=== PATIENT | male | born 1945 | race Caucasian/White ===

== ENCOUNTER → 2017-06-30 14:09 | Outpatient (CLI) | payer MEDICARE, SELFPAY ==
--- NOTE | 2017-06-30 14:18 | XR_ITS ---
XR chest 2V HISTORY: Productive cough ITS.REASON: CHRONIC COUGH ORDERING PHYSICIAN: Lakeshia Perez MD PATIENT AGE: 71 years COMPARISON: None 712 FINDINGS: The cardiomediastinal silhouette and pulmonary vascularity are within normal limits. The lungs are clear without infiltrates, suspicious nodules, or pleural effusions. Scattered calcified granulomas are present in the right lower lobe No acute bony abnormalities. IMPRESSION: No change with no acute finding
== END ==
PROVIDERS: PCP Family Medicine; Visit Provider Family Medicine
DX: R05 Cough (principal)
CPT/HCPCS: 71046

== ENCOUNTER → 2018-08-22 12:04 | Outpatient (CLI) | payer MEDICARE, SELFPAY ==
--- NOTE | 2018-08-22 12:06 | NM_ITS ---
SPECT MYOCARDIAL PERFUSION SCAN, REST AND STRESS: EXERCISE STRESS: [facility] REVIEW QGS EF AND WALL MOTION EVALUATION: QPS - PERFUSION EVALUATION: HISTORY: CAD PROCEDURE: Rest imaging performed after administration of10.23 millicuries Tc MIBI. Dose administered at12:00 p.m., with imaging thereafter. Stress imaging was then performed [id number] minutes 46 seconds of exercise stress. The patient achieved a heart [id number] with projected heart rate of127 . Resting BP166/89 with stress 162/70. At maximum exercise stress,31.2 millicuries Tc MIBI administered at1:50 p.m. with [id number] minutes thereafter. FINDINGS: Perfusion Evaluation: The single slice spect images as well as the [facility] bull's-eye data summary were reviewed. Wall Motion and Ejection Fraction Evaluation: Gated SPECT review and analysis used to evaluate these features. There is a 59 % left ventricular ejection fraction. There seems to be good wall motion Stress images reveal decreased activity in the portion of the mid anterior apical wall and mildly decreased activity in the inferior wall. Rest images reveal slightly worse activity in the inferior apical wall. Gated images calculated ejection fraction of 59% with normal wall motion IMPRESSION: Abnormal EKG response to exercise accompanied by evidence of reverse redistribution in the inferior apical wall. This is an abnormal stress test at least in the moderate range possibly in the high risk range based on the large amount of ischemic myocardium.
--- NOTE | 2018-08-22 14:36 | HMH.ITSHM ---
Current Home Medications as stated by this patient Alex Marquez or praneeth WATSON BI FLEX ASPIRIN Q-10 VIT D3 ATORVASTATIN LOSARTAN TIMOLOL BUPROPION AMLODIPINE
== END ==
PROVIDERS: PCP Family Medicine; Visit Provider Internal Medicine
DX: E78.5 Hyperlipidemia, unspecified (principal); I25.118 Atherosclerotic heart disease of native coronary artery with other forms of angina pectoris; I77.9 Disorder of arteries and arterioles, unspecified; J43.9 Emphysema, unspecified; R00.1 Bradycardia, unspecified; R00.2 Palpitations
CPT/HCPCS: 78452; 93017; A9502

== ENCOUNTER → 2018-08-24 14:30 | Outpatient (CLI) | payer MEDICARE, SELFPAY ==
--- NOTE | 2018-08-24 14:33 | CA_ITS ---
PROCEDURE: 2-D M-mode and color Doppler study INDICATIONS FOR THE TEST: Chest pain COPD+ Heart Murmur Tobacco SmokingEX Palpitations+ Fatigue Syncope Edema Hypertension+Diabetes Mellitus Rheumatic Fever SOB QUICK Obesity Hyperlipidemia+ Family History HD Additional History bradycardia PATIENT INFORMATION HEIGHT: 73 WEIGHT: 188 GENDER: Male B/P: 156/90 2-D/M-MODE INTERPRETATION: 2-D MEASUREMENTS OBSERVED VALUES IN CMS Right Ventricular Dimension (RVDd) 2.0 Interventricular Septum (Thickness)(IVsd) 0.9 Left Ventricular Internal Dimensions(LVIDd) 5.4 Left Ventricular Posterior Wall (Thickness)(LVPWd) 0.9 Aortic Root 1.9 Aortic Cusp Separation 2.0 Left Atrial Dimensions (LAD) 3.1 2D 1. Left atrium is mildly enlarged, left ventricle is normal size, mild concentric left ventricular hypertrophy, visually estimated ejection fraction 55% with no regional wall motion abnormality. 2. The right atrium and right ventricle are normal size and contractility. 3. The aortic valve is minimally thickened and fibrosed. 4. The mitral and tricuspid valve leaflets are minimally thickened. 5. The pulmonic valve is poorly present. 6. No significant pericardial effusion noted. DOPPLER INTERROGATION: Doppler interrogation of the aortic, mitral and tricuspid valvular presence of mild mitral and tricuspid regurgitation, tricuspid regurgitation jet velocity is inadequate for calculation of the right ventricular systolic pressure, grade 1 diastolic dysfunction seen without tissue Doppler evidence of raised left atrial pressure. CONCLUSION: 1. Mildly enlarged left atrium, normal left ventricular size, mild concentric left ventricular hypertrophy, visually estimated ejection fraction 55% with no regional wall motion abnormality, grade 1 diastolic dysfunction seen without tissue Doppler evidence of raised left atrial pressure. 2. Mild mitral and tricuspid regurgitation 3. No significant pericardial effusion noted.
--- NOTE | 2018-08-24 14:33 | CI_ITS ---
Cerebrovascular Exam Indications: Follow-up carotid 433.10. IMPRESSIONS 1. The bilateral vertebral arteries are patent with normal antegrade flow. 2. Study suggests 20-49% stenosis involving the right internal carotid artery. Disease progression from the study of 13-Apr-2016. 3. Study suggests 20-49% stenosis involving the left internal carotid artery. No change from the study of 13-Apr-2016. History: Risk factors: Hypertension. Carotid duplex study. Complete study and Doppler flow study including spectral analysis, color and ngo scale imaging. Location: Vascular laboratory. Patient status: Outpatient. Tables: Arterial flow: + +--------+--------+ Location V sys V ed + +--------+--------+ Right CCA - proximal 125cm/s 29.9cm/s + +--------+--------+ Right CCA - distal 127cm/s 30.6cm/s + +--------+--------+ Right ECA 86.9cm/s 17.5cm/s + +--------+--------+ Right ICA - proximal 111cm/s 28.3cm/s + +--------+--------+ Right ICA - mid 99.1cm/s 34cm/s + +--------+--------+ Right ICA - distal 107cm/s 33cm/s + +--------+--------+ Right vertebral 57.3cm/s 13.6cm/s + +--------+--------+ Left CCA - proximal 94.9cm/s 21.5cm/s + +--------+--------+ Left CCA - distal 107cm/s 25.9cm/s + +--------+--------+ Left ECA 99cm/s 13.7cm/s + +--------+--------+ Left ICA - proximal 51.3cm/s 18cm/s + +--------+--------+ Left ICA - mid 67.6cm/s 21.8cm/s + +--------+--------+ Left ICA - distal 63.5cm/s 25.1cm/s + +--------+--------+ Left vertebral 79.6cm/s 19cm/s + +--------+--------+ Velocity ratios: + + + + + + Right, V sys Right, V ed Left, V sys Left, V ed + + + + + + Max ICA/dist CCA 0.87 1.11 0.63 0.97 + + + + + + (Report amended ) Electronically signed by: Zachariah Rankin [id number]
== END ==
PROVIDERS: PCP Family Medicine; Visit Provider Internal Medicine
DX: R09.89 Other specified symptoms and signs involving the circulatory and respiratory systems; E78.5 Hyperlipidemia, unspecified; I25.118 Atherosclerotic heart disease of native coronary artery with other forms of angina pectoris; I77.9 Disorder of arteries and arterioles, unspecified; J43.9 Emphysema, unspecified; R00.1 Bradycardia, unspecified; R00.2 Palpitations; I65.23 Occlusion and stenosis of bilateral carotid arteries
CPT/HCPCS: 93306; 93880

== ENCOUNTER → 2018-08-29 14:28 | Outpatient (CLI) | payer MEDICARE, SELFPAY | PROVIDERS: PCP Family Medicine; Visit Provider Urology | DX: E78.5 Hyperlipidemia, unspecified (principal); I25.10 Atherosclerotic heart disease of native coronary artery without angina pectoris; I77.9 Disorder of arteries and arterioles, unspecified; R00.1 Bradycardia, unspecified; R94.30 Abnormal result of cardiovascular function study, unspecified | CPT/HCPCS: 93270 ==

== ENCOUNTER 2018-09-03 08:18 | Day surgery (SDC) | payer MEDICARE, SELFPAY ==
[2018-09-03] VITALS (13 sets, daily range): BP systolic 103–179; BP diastolic 50–99; PULSE 56–65; RESP 16–18; O2SAT 95–99; BMI 24.7
--- NOTE | 2018-09-03 | IR_ITS ---
CARDIAC CATHETERIZATION DATE OF CATHETERIZATION:09/03/2018 9:33 AM PROCEDURES: 1. Left heart catheterization 2. Left ventriculogram 3. Selective coronary angiogram INDICATION FOR TEST: 1. High risk abnormal stress test 2. Atypical chest pain Informed consent was obtained prior to the procedure. COMPLICATIONS: None ESTIMATED BLOOD LOSS: Less than 10 ml. TECHNIQUE: One percent lidocaine used to anesthetize the right anterior aspect of the wrist. The right radial artery was accessed via the Seldinger technique. A 6 Macanese sheath was placed in the right radial artery. 2.5 mg of verapamil, 800 mcg of nitroglycerin, 1mg Lidocaine and 5000 U Heparin were given through the arterial sheath. The trap catheter and a 6 Macanese JL 3.5 catheter was also used to perform left heart catheterization, left ventriculogram and selective coronary angiogram. At the end of the procedure the sheath was removed good hemostasis was achieved using Traclet band, patient was transferred to the postop holding area in stable condition . ANGIOGRAPHIC RESULTS: 1. The left main artery normal 2. The left anterior descending artery has proximal 10% luminal irregularities within mid vessel concentric 20-30% stenosis. This is a large vessel which wraps the apex and supplies the inferior wall 3. The circumflex artery is a dominant system and gives rise to a high ramus intermedius which is moderate in size and has a long concentric smooth 50% stenosis. The high first obtuse marginal artery has a proximal 70-80% stenosis and is a 2.25 mm vessel. The circumflex artery has 30% mid vessel stenoses followed by a 70% concentric stenosis distal terminal obtuse marginal artery at a 1.5 mm segment. This supplies a small amount of distal myocardium 4. The right coronary artery small nondominant normal 5. The ADRIAN ventriculogram reveals normal 65% 6. The left ventricular end-diastolic pressure 10 mmHg IMPRESSION: 1. Coronary artery disease as described above 2. Normal ejection fraction 3. Normal left ventricular end-diastolic pressure PLAN: 1. Recommend aggressive medical management. Although the first obtuse marginal artery could be stented it would benefit better from medical management and my opinion. Should patient have recalcitrant angina refractory to antianginal medications we can consider stenting it but my preference is medical management 2. Avoidance of tobacco products 3. LDL less than 55
[2018-09-03 09:04] LABS: Basophils # 0.1 K/mm3 (0-0.2); Basophils % 0.9 % (0.1-2.0); Eosinophils # 0.3 K/mm3 (0.0-0.4); Eosinophils % 4.3 % (0.1-12.0); Hematocrit 42.5 % (42.0-52.0); Hemoglobin 13.9 g/dL (14.1-18.0); Lymphocytes # 1.8 K/mm3 (0.7-4.5); Lymphocytes % 26.3 % (10-50); Mean Corpuscular HGB Conc 32.7 g/dL (31.8-35.4); Mean Corpuscular Hemoglobin 31.2 pg (27.0-31.2); Mean Corpuscular Volume 95.3 fl (80-94); Mean Platelet Volume 7.2 fl (7.4-10.4); Monocytes # 0.5 K/mm3 (0.1-1.0); Monocytes % 7.5 % (1.7-9.3); Neutrophils # 4.3 K/mm3 (1.8-7.8); Platelet Count 240 K/mm3 (142-424); Red Blood Count 4.46 M/mm3 (4.60-6.20); Red Cell Distribution Width 12.7 % (11.5-17.5)
[2018-09-03 09:11] LABS: Anion Gap 13.8 mEq/L (5-15); Blood Urea Nitrogen 18 mg/dL (7-18); Calcium 8.6 mg/dL (8.5-10.1); Carbon Dioxide 26 mmol/L (21.0-32.0); Chloride 100 mmol/L (98-107); Creatinine Clearance Estimated 78 mL/min (50-200); Creatinine,Serum 1.05 mg/dL (0.70-1.30); Estimated Glomerular Filt Rate 70 ml/min (>60); GFR (African American) 84 ML/MIN (>60); Glucose 110 mg/dL (74-106); Sodium 135 mmol/L (136-145)
[2018-09-03 09:14] LABS: Potassium 4.8 mmoL/L (3.5-5.1)
== END 2018-09-03 13:18 | disposition home or self-care (01) ==
LOC: CATHLAB 08:19
PROVIDERS: PCP Family Medicine; Visit Provider Internal Medicine
DX: I25.10 Atherosclerotic heart disease of native coronary artery without angina pectoris (principal); Z95.5 Presence of coronary angioplasty implant and graft; I50.30 Unspecified diastolic (congestive) heart failure; I65.29 Occlusion and stenosis of unspecified carotid artery; I77.9 Disorder of arteries and arterioles, unspecified; E78.5 Hyperlipidemia, unspecified; Z79.899 Other long term (current) drug therapy
CPT/HCPCS: 80048; 85025; 93458; 99152; C1725; C1769; J1644; Q9967

== ENCOUNTER → 2018-09-24 10:41 | Outpatient (CLI) | payer MEDICARE, SELFPAY ==
[2018-09-24 11:46] LABS: Anion Gap 10.5 mEq/L (5-15); Blood Urea Nitrogen 12 mg/dL (7-18); Calcium 8.4 mg/dL (8.5-10.1); Carbon Dioxide 31 mmol/L (21.0-32.0); Chloride 96 mmol/L (98-107); Creatinine,Serum 1.09 mg/dL (0.70-1.30); Estimated Glomerular Filt Rate 67 ml/min (>60); GFR (African American) 81 ML/MIN (>60); Glucose 83 mg/dL (74-106); Potassium 4.5 mmoL/L (3.5-5.1); Sodium 133 mmol/L (136-145)
== END ==
PROVIDERS: Visit Provider Internal Medicine Cardiovascular Disease
DX: E78.5 Hyperlipidemia, unspecified (principal); I11.9 Hypertensive heart disease without heart failure; I25.10 Atherosclerotic heart disease of native coronary artery without angina pectoris; I77.9 Disorder of arteries and arterioles, unspecified
CPT/HCPCS: 36415; 80048

== ENCOUNTER → 2019-04-19 10:37 | Outpatient (CLI) | payer MEDICARE, SELFPAY ==
--- NOTE | 2019-04-19 10:42 | XR_ITS ---
PROCEDURE: XR FOOT WT BEARING LT 3V CLINICAL INDICATION: pain COMPARISON: No exams were available for comparison FINDINGS: No fracture or dislocation. No lytic or blastic change. There is normal mineralization. There are severe osteoarthritic changes of the 1st metatarsophalangeal joint with moderate bony hypertrophy/bunion formation. There is mild pes planus. 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
--- NOTE | 2019-04-19 10:42 | XR_ITS ---
PROCEDURE: XR FOOT WT BEARING RT 3V CLINICAL INDICATION: pain COMPARISON: No exams were available for comparison FINDINGS: No fracture or dislocation. No lytic or blastic change. There is normal mineralization. There are severe osteoarthritic changes of the 1st metatarsophalangeal joint with mild hallux valgus. There is mild lateral displacement of the proximal phalanx of the great toe of approximately 3 mm. There bunion formation at that region with prominent bony hypertrophy. There is borderline pes planus and there is a small calcaneal spur. Other findings:None. IMPRESSION: There are severe osteoarthritic changes of the 1st metatarsophalangeal joint with mild hallux valgus. There is mild lateral displacement of the proximal phalanx of the great toe of approximately 3 mm. There bunion formation at that region with prominent bony hypertrophy. There is borderline pes planus and there is a small calcaneal spur Dictated by: Zachariah Rankin MD 04/19/2019 15:54 Electronically signed by Zacharaih Rankin MD in [place] 04/19/2019 15:54
== END ==
PROVIDERS: PCP Family Medicine; Visit Provider Podiatrist
DX: M79.672 Pain in left foot (principal); M79.671 Pain in right foot
CPT/HCPCS: 73630

== ENCOUNTER 2019-09-10 16:50 | Emergency (ER) | payer MEDICARE, SELFPAY ==
[2019-09-10 16:57] VITALS: BP 149/87; PULSE 63; RESP 18; TEMP 37.3; O2SAT 98; BMI 24.4
--- NOTE | 2019-09-10 16:59 | HMH.COUGH ---
Cough Clinic HPI - History of Present Illness Complaint:: cough HPI:: 74 year old male presents to the cough clinic with a cough since awakening this a.m. with associated nasal congestion and post nasal drainage. He has been very active outside mowing grass and tending to his yard. He admits he felt clammy yesterday but had a normal temperature. He denies shortness of breath. He quit smoking 40 years ago. He has had pneumonia twice in his adult life. He admits he also comes to the cough clinic because his encouraged him too. Home Medications: Home Medications Medication Instructions Recorded Confirmed Type aspirin 81 mg tablet,delayed 81 mg PO DAILY 08/10/18 09/10/19 History release atorvastatin 40 mg tablet 40 mg PO DAILY 08/10/18 09/10/19 History coenzyme Q10 100 mg capsule 100 mg PO DAILY 08/10/18 09/10/19 History ibuprofen 600 mg tablet 600 mg PO QID PRN 08/10/18 09/10/19 History timolol maleate (PF) 0.5 % eye 1 drp OPHTHALMIC BID 08/10/18 09/10/19 History drops in a dropperette bupropion HCl 150 mg 24 hr tablet, 150 mg PO DAILY 08/13/18 09/10/19 History extended release cholecalciferol (vitamin D3) 25 1,000 unit PO DAILY 08/13/18 09/10/19 History mcg (1,000 unit) capsule glucosamine [id number] 1 tab PO DAILY 08/13/18 09/10/19 History jak 1,500 mg-400 unit-100 mg tablet oxazepam 15 mg capsule 15 mg PO TID PRN cap 08/13/18 09/10/19 History glucosamine-chondroitin 250 mg-200 2 tab PO BID tab 09/14/18 09/10/19 History mg tablet diclofenac sodium 1 % topical gel 4 g TOPICAL QID PRN #30 g 06/17/19 09/10/19 Rx Losartan/Hydrochlorothiazide 1 tab PO DAILY 09/10/19 09/10/19 History [Hyzaar 50-12.5 Tablet] Allergies/Adverse Reactions: Allergies Allergy/AdvReac Type Severity Reaction Status Date / Time No Known Drug Allergies Allergy Unknown Verified 09/10/19 16:53 [NKDA] Cough Clinic Triage - Symptoms Fever History: No Chills: No Myalgia: No Nasal Drainage: Yes Sore Throat: No (dry) Productive Cough: No Non-productive Cough: Yes Ear or Sinus Pain: No Joint Pain: No Chest Pain: No Rash: No Shortness of Breath: No Nausea or Vomitting: No Headache: No Abdominal Pain: No Diarrhea: No - Exposure History Foreign Travel: No Direct Contact with COVID-19 Patient: No - Risk Factors Greater than 60 Years Old: Yes COPD: No Diabetes: No Heart Disease: Yes (htn, stents) Home Oxygen Use: No Chronic Renal Disease: No Chronic Liver Disease: No Neurologic/Neurodevelopmental/intellectual disability: No Other Chronic Diseases: No Current Smoker: No Former Smoker: Yes Cough Clinic History I have reviewed the patient's past medical history: Yes Medical History: Reports:: Anxiety, Coronary Artery Disease, Heart Murmur, Hyperlipidemia, Hypertension Other Surgeries: Yes: Cardiac Catheterization, Coronary Stent, Hernia Repair, Other Comment: Back surgery - Social History Smoking Status: Former smoker Alcohol Intake: never Alcohol Intake Frequency:: a few times a week Substance Use Type: denies use Occupational Status: retired Household Members: spouse - Psychiatric History Pschychiatric History:: Reports:: Anxiety Family Hx:: Adopted ROS Obtained: Yes All systems reviewed & no additional complaints Cough Clinic Exam - General General appearance: anxious - Head Head exam: atraumatic, normocephalic, normal inspection - Eye Eye exam: Present: normal appearance. Absent: conjunctival redness - ENT ENT exam: Present: normal oropharynx - Neck Neck exam: Present: normal inspection. Absent: lymphadenopathy - Chest Chest inspection: Present: normal inspection, symmetric chest wall rise - Respiratory Respiratory exam: Present: normal lung sounds bilaterally. Absent: respiratory distress, wheezes - Cardiovascular Cardiovascular exam: Present: regular rate, +S1, +S2 - Abdominal Exam Abdominal exam: Present: soft - Neurological Exam Neurological
--- NOTE | 2019-09-10 17:04 | XR_ITS ---
PROCEDURE: XR CHEST PORTABLE CLINICAL HISTORY: cough/respiratory symptoms COMPARISON: CXR2V XR chest 2V from 06/30/2017 FINDINGS: The cardiomediastinal silhouette and pulmonary vascularity are within normal limits. The lungs are clear without infiltrates, suspicious nodules, or pleural effusions. Calcified granulomas are present in the right mid lower lung zone. The remaining lungs are clear. No acute bony findings. IMPRESSION: No acute findings. Dictated by: Zachariah Rankin MD 09/10/2019 18:19 Electronically signed by Zachariah Rankin MD in [place] 09/10/2019 18:19
[2019-09-10 17:16] LABS: Mean Corpuscular HGB Conc 31.8 g/dL (31.8-35.4); Mean Corpuscular Hemoglobin 31.4 pg (27.0-31.2); Mean Corpuscular Volume 98.6 fl (80-94); Red Blood Count 4.15 M/mm3 (4.60-6.20); White Blood Count 9.4 K/mm3 (4.8-10.8)
[2019-09-10 17:17] LABS: Basophils # 0.1 K/mm3 (0-0.2); Basophils % 0.9 % (0.1-2.0); Eosinophils # 0.3 K/mm3 (0.0-0.4); Eosinophils % 3.1 % (0.1-12.0); Lymphocytes # 2.6 K/mm3 (0.7-4.5); Lymphocytes % 27.6 % (10-50); Mean Platelet Volume 7.3 fl (7.4-10.4); Monocytes # 0.8 K/mm3 (0.1-1.0); Monocytes % 8.2 % (1.7-9.3); Neutrophils # 5.7 K/mm3 (1.8-7.8); Neutrophils % 60.2 % (37.0-80.0); Platelet Count 257 K/mm3 (142-424)
[2019-09-10 17:24] VITALS: BP 142/78; PULSE 61; RESP 18; TEMP 37.3; O2SAT 98
== END 2019-09-10 17:33 | disposition home or self-care (01) ==
PROVIDERS: Emergency Provider Family Medicine; PCP Family Medicine
DX: R05 Cough (principal); R09.81 Nasal congestion; F41.9 Anxiety disorder, unspecified; I25.10 Atherosclerotic heart disease of native coronary artery without angina pectoris; E78.5 Hyperlipidemia, unspecified; I10 Essential (primary) hypertension; Z87.891 Personal history of nicotine dependence
CPT/HCPCS: G0463; 36415; 71045; 85025; 99201; 99213

== ENCOUNTER → 2019-12-12 11:31 | Outpatient (CLI) | payer MEDICARE, SELFPAY ==
[2019-12-12 12:13] LABS: Basophils # 0.1 K/mm3 (0-0.2); Basophils % 0.4 % (0.1-2.0); Eosinophils # 0.1 K/mm3 (0.0-0.4); Eosinophils % 1.1 % (0.1-12.0); Hematocrit 41.9 % (42.0-52.0); Lymphocytes % 9.3 % (10-50); Mean Corpuscular HGB Conc 33.4 g/dL (31.8-35.4); Mean Corpuscular Hemoglobin 32.9 pg (27.0-31.2); Mean Corpuscular Volume 98.5 fl (80-94); Mean Platelet Volume 7.1 fl (7.4-10.4); Monocytes # 0.7 K/mm3 (0.1-1.0); Monocytes % 6.5 % (1.7-9.3); Neutrophils % 82.7 % (37.0-80.0); Platelet Count 224 K/mm3 (142-424); Red Blood Count 4.26 M/mm3 (4.60-6.20); Red Cell Distribution Width 12.8 % (11.5-17.5); White Blood Count 10.9 K/mm3 (4.8-10.8)
[2019-12-14 09:02] LABS: Covid-19 Nasal PCR Sendout Lex NOT DETECTED
== END ==
PROVIDERS: PCP Family Medicine; Referring Provider Family Medicine; Visit Provider Family Medicine
DX: Z03.818 Encounter for observation for suspected exposure to other biological agents ruled out (principal)
CPT/HCPCS: 36415; 85025; U0004

== ENCOUNTER → 2020-03-25 11:33 | Outpatient (CLI) | payer MEDICARE, SELFPAY ==
[2020-03-25 13:36] LABS: Alanine Aminotransferase 33 U/L (12-78); Albumin Level 4.2 g/dl (3.5-5.0); Albumin/Globulin Ratio 1.6 (1.1-1.8); Alkaline Phosphatase 113 U/L (38-126); Anion Gap 10.8 mEq/L (5-15); Aspartate Amino Transferase 36 U/L (17-59); Bilirubin,Total 0.5 mg/dl (0.2-1.3); Blood Urea Nitrogen 18 mg/dl (9-20); Calcium 9.7 mg/dl (8.4-10.2); Carbon Dioxide 31 mmol/L (22.0-30.0); Chloride 96 mmol/L (98-107); Estimated Glomerular Filt Rate 73 ml/min (>60); GFR (African American) 89 ML/MIN (>60); Globulin 2.6 g/dL (1.3-3.2); Glucose 102 mg/dl (74-100); Potassium 4.8 mmoL/L (3.5-5.1); Sodium 133 mmol/L (136-145); Total Protein,Serum 6.8 g/dl (6.3-8.2)
[2020-03-25 14:43] LABS: Vitamin B12 376 pg/mL (239-931)
[2020-03-25 14:47] LABS: Folate 7.96 ng/mL
== END ==
PROVIDERS: Visit Provider Family Medicine
DX: I25.10 Atherosclerotic heart disease of native coronary artery without angina pectoris (principal); E78.5 Hyperlipidemia, unspecified
CPT/HCPCS: 36415; 80053; 82607; 82746

== ENCOUNTER → 2020-05-22 16:11 | Outpatient (CLI) | payer MEDICARE, SELFPAY | PROVIDERS: PCP Physician Assistant; Visit Provider Physician Assistant | DX: Z11.52 Encounter for screening for COVID-19 (principal) | CPT/HCPCS: U0003 ==

== ENCOUNTER → 2020-12-25 14:18 | Outpatient (CLI) | payer MEDICARE, SELFPAY ==
[2020-12-25 14:58] LABS: Basophils # 0.1 K/mm3 (0-0.2); Basophils % 0.8 % (0.1-2.0); Eosinophils # 0.3 K/mm3 (0.0-0.4); Hematocrit 40.2 % (42.0-52.0); Hemoglobin 13.6 g/dL (14.1-18.0); Lymphocytes # 2.5 K/mm3 (0.7-4.5); Lymphocytes % 27.3 % (10-50); Mean Corpuscular HGB Conc 33.7 g/dL (31.8-35.4); Mean Corpuscular Hemoglobin 31.9 pg (27.0-31.2); Mean Corpuscular Volume 94.4 fl (80-94); Mean Platelet Volume 7.1 fl (7.4-10.4); Monocytes # 0.7 K/mm3 (0.1-1.0); Neutrophils # 5.5 K/mm3 (1.8-7.8); Neutrophils % 60.9 % (37.0-80.0); Platelet Count 242 K/mm3 (142-424); Red Blood Count 4.26 M/mm3 (4.60-6.20); Red Cell Distribution Width 13.1 % (11.5-17.5)
== END ==
PROVIDERS: PCP Family Medicine; Visit Provider Family Medicine
DX: Z20.822 Contact with and (suspected) exposure to COVID-19 (principal)
CPT/HCPCS: 36415; 85025; U0003

== ENCOUNTER → 2021-02-04 18:27 | Outpatient (CLI) | payer MEDICARE, SELFPAY ==
[2021-02-04 19:04] LABS: Erythrocyte Sedimentation Rate 15 mm/hr (0-20)
== END ==
PROVIDERS: Visit Provider Family Medicine
DX: R41.3 Other amnesia (principal)
CPT/HCPCS: 85651

== ENCOUNTER 2021-06-17 11:32 | Emergency (ER) | payer MEDICARE, SELFPAY ==
--- NOTE | 2021-06-17 12:40 | XR_ITS ---
FINAL REPORT CLINICAL HISTORY: cough, covid, cad COMPARISON: 09/10/2019 FINDINGS: TWO VIEWS OF THE CHEST The heart is normal in size. The mediastinum is unremarkable. The lungs are hyperinflated consistent with COPD. There is mild scarring, stable. No new pulmonary abnormality is identified. There is no pneumothorax. IMPRESSION: No acute cardiopulmonary process. Reviewed, Interpreted and Dictated by Esequiel Velasquez III, MD Transcribed by Analy Luz Authenticated by Esequiel Velasquez III, MD on 06/17/2021 01:22:05 PM [facility]
--- NOTE | 2021-06-17 13:30 | HMH.EDUTC ---
[facility] [place] Disposition Clinical Impression: COVID-19 Disposition: Home, Self-Care Condition on Discharge: Good Instructions: DI for COVID-19 (Suspected or Confirmed ), Preventing the Spread of Coronavirus Discharge Instructions Additional Instructions: Drink plenty of fluids. Take tylenolfor pain or fever. Take the medications as directed. Follow up with your regular doctor. GO TO THE ER FOR ANY WORSENING SYMPTOMS The cough syrup (promethazine dm) will make you drowsy, so don't drive or operate heavy machinery after taking it. Be very careful and do not fall at home if you take it. Prescriptions: Promethazine/Dextromethorphan [Promethazine-Dm Syrup] 5 ml PO Q6HP PRN #240 ml PRN Reason: Cough Transmission Status: Received by [facility] Ondansetron [Zofran 4mg ODT] 4 mg PO Q8HP PRN #20 tab PRN Reason: Nausea Transmission Status: Received by [facility] Benzonatate [Benzonatate 100mg cap] 100 mg PO TIDP PRN #30 cap PRN Reason: Cough Transmission Status: Received by [facility] Referrals: Lakeshia Perez MD [Primary Care Provider] - Time of Disposition: 13:36 Medical Decision Making - Medical Records Medical records reviewed: No: I reviewed the patient's medical records. - Carlos Inquiry Pt receiving controlled substance: No Vital Signs: 06/17/21 13:43 06/17/21 13:47 Temperature 97.6 F 97.6 F Temperature Source Temporal Artery Scan Pulse Rate 61 Pulse Rate [Left] 61 Respiratory Rate 18 18 Blood Pressure 157/70 H Blood Pressure [Right Arm] 157/70 H Blood Pressure Mean [Right Arm] 99 02 Sat by Pulse Oximetry 98 - Radiology Data #1 Image(s): Chest Image Reviewed: Yes I reviewed the patient's radiology image, Yes I have reviewed radiologist's interpretation Preliminary Findings: Normal/NAD, No Infiltrates Seen FINAL REPORT CLINICAL HISTORY: cough, covid, cad COMPARISON: 09/10/2019 FINDINGS: TWO VIEWS OF THE CHEST The heart is normal in size. The mediastinum is unremarkable. The lungs are hyperinflated consistent with COPD. There is mild scarring, stable. No new pulmonary abnormality is identified. There is no pneumothorax. IMPRESSION: No acute cardiopulmonary process. Reviewed, Interpreted and Dictated by Esequiel Velasquez III, MD Transcribed by Analy Luz Authenticated by Esequiel Velasquez III, MD on 06/17/2021 01:22:05 PM [facility] HPI - General Stated complaint: covid pos, cough/congestion Time Seen by Provider: 06/17/21 13:45 - History of Present Illness Provider Complaint: He tested positive for covid-19 5 days ago. He came in today to be checked for pneumonia. He denies significant shortness of breath. He does have a low grade fever at times and a productive cough with yellowish sputum. He denies feeling very bad. - Related Data Home Medications Medication Instructions Recorded Confirmed aspirin 81 mg tablet,delayed 81 mg PO DAILY 08/10/18 10/16/20 release atorvastatin 40 mg tablet 40 mg PO DAILY 08/10/18 10/16/20 coenzyme Q10 100 mg capsule 100 mg PO DAILY 08/10/18 10/16/20 ibuprofen 600 mg tablet 600 mg PO QID PRN 08/10/18 10/16/20 timolol maleate (PF) 0.5 % eye 1 drp OPHTHALMIC BID 08/10/18 10/16/20 drops in a dropperette bupropion HCl 150 mg 24 hr tablet, 150 mg PO DAILY 08/13/18 10/16/20 extended release cholecalciferol (vitamin D3) 25 1,000 unit PO DAILY 08/13/18 10/16/20 mcg (1,000 unit) capsule glucosamine [id number]-Cafdzpiif 1 tab PO DAILY 08/13/18 10/16/20 jak 1,500 mg-400 unit-100 mg tablet oxazepam 15 mg capsule 15 mg PO TID PRN cap 08/13/18 10/16/20 Previous Rx's Medication Instructions Recorded diclofenac sodium 1 % topical gel 4 g TOPICAL QID PRN #30 g 12/16/19 losartan 50 mg tablet 50 mg PO QHS #90 tab 03/15/21 losartan 50 mg-hydrochlorothiazide 1 tab PO DAILY #90 tab 03/15/21 12.5 mg tablet Benzonatate [Be
[2021-06-17 13:43] VITALS: BP 157/70; PULSE 61; RESP 18; TEMP 36.4; O2SAT 98; BMI 24.4
[2021-06-17 13:47] VITALS: BP 157/70; PULSE 61; RESP 18; TEMP 36.4
== END 2021-06-17 13:48 | disposition home or self-care (01) ==
PROVIDERS: Emergency Provider Nurse Practitioner Family; PCP Family Medicine
DX: U07.1 COVID-19 (principal); F41.9 Anxiety disorder, unspecified; I25.10 Atherosclerotic heart disease of native coronary artery without angina pectoris; E78.5 Hyperlipidemia, unspecified; I10 Essential (primary) hypertension; F17.210 Nicotine dependence, cigarettes, uncomplicated
CPT/HCPCS: G0463; 71046; 99202

== ENCOUNTER → 2022-03-23 09:58 | Outpatient (CLI) | payer MEDICARE, SELFPAY ==
[2022-03-23 10:19] LABS: Microscopic, Urine URINE MICROSCOPIC (MICROSCOPIC)
[2022-03-23 10:42] LABS: Basophils # 0.1 K/mm3 (0-0.2); Basophils % 0.8 % (0.1-2.0); Eosinophils # 0.2 K/mm3 (0.0-0.4); Eosinophils % 1.7 % (0.1-12.0); Hematocrit 42.3 % (42.0-52.0); Hemoglobin 13.2 g/dL (14.1-18.0); Lymphocytes # 1.5 K/mm3 (0.7-4.5); Lymphocytes % 14.6 % (10-50); Mean Corpuscular HGB Conc 31.1 g/dL (31.8-35.4); Mean Corpuscular Hemoglobin 31.5 pg (27.0-31.2); Mean Corpuscular Volume 101.2 fl (80-94); Mean Platelet Volume 7.6 fl (7.4-10.4); Monocytes # 0.7 K/mm3 (0.1-1.0); Monocytes % 6.2 % (1.7-9.3); Neutrophils # 8.1 K/mm3 (1.8-7.8); Neutrophils % 76.7 % (37.0-80.0); Platelet Count 297 K/mm3 (142-424); Red Blood Count 4.18 M/mm3 (4.60-6.20); Red Cell Distribution Width 12.6 % (11.5-17.5); White Blood Count 10.6 K/mm3 (4.8-10.8)
[2022-03-23 11:05] LABS: Appearance,Urine CLEAR (Clear); Bilirubin,Urine Negative (Negative); Blood, Urine Negative (Negative); Color,Urine YELLOW (Yellow); Glucose,Urine (UA) 3+ (Negative); Ketones,Urine Negative (Negative); Leukocyte Esterase,Urine Negative (Negative); Nitrate,Urine Negative (Negative); Protein,Urine Negative (Negative); Specific Gravity, Urine 1.015 (1.005-1.030); Urobilinogen,Urine 0.2 EU/dl (0.2)
[2022-03-23 11:15] LABS: Creatinine,Urine Random 136 mg/dL (Not Estab.)
[2022-03-23 11:29] LABS: WBC,Urine Occasional #/hpf (0-3)
[2022-03-23 11:34] LABS: 25-OH Vitamin D, Total 61.1 ng/mL (30-100)
[2022-03-23 12:25] LABS: Albumin Level 4.2 g/dl (3.5-5.0); Anion Gap 15.7 mEq/L (5-15); Blood Urea Nitrogen 22 mg/dl (9-20); Calcium 9.3 mg/dl (8.4-10.2); Carbon Dioxide 27 mmol/L (22.0-30.0); Chloride 97 mmol/L (98-107); Estimated Glomerular Filt Rate 46 ml/min (>60); GFR (African American) 55 ML/MIN (>60); Glucose 104 mg/dl (74-100); Phosphorous 3.8 mg/dl (2.5-4.5); Potassium 4.7 mmoL/L (3.5-5.1); Sodium 135 mmol/L (136-145)
[2022-03-23 12:33] LABS: Intact Parathyroid Hormone 41.2 pg/mL (7.5-53.5)
== END ==
PROVIDERS: PCP Family Medicine; Visit Provider Internal Medicine Nephrology
DX: N28.9 Disorder of kidney and ureter, unspecified (principal); E55.9 Vitamin D deficiency, unspecified
CPT/HCPCS: 36415; 80069; 81001; 82306; 82570; 83970; 84155; 85025

== ENCOUNTER → 2022-03-28 15:02 | Outpatient (POV) | payer MEDICARE, SELFPAY | PROVIDERS: Visit Provider Internal Medicine Nephrology | DX: Z00.00 Encounter for general adult medical examination without abnormal findings (principal) ==

== ENCOUNTER → 2022-04-29 13:23 | Outpatient (CLI) | payer MEDICARE, SELFPAY ==
[2022-04-29 14:21] LABS: Basophils # 0.1 K/mm3 (0-0.2); Basophils % 0.8 % (0.1-2.0); Eosinophils # 0.2 K/mm3 (0.0-0.4); Eosinophils % 2.2 % (0.1-12.0); Hematocrit 42.5 % (42.0-52.0); Hemoglobin 13.4 g/dL (14.1-18.0); Lymphocytes % 22.1 % (10-50); Mean Corpuscular HGB Conc 31.5 g/dL (31.8-35.4); Mean Corpuscular Hemoglobin 31.2 pg (27.0-31.2); Mean Corpuscular Volume 98.8 fl (80-94); Mean Platelet Volume 7.9 fl (7.4-10.4); Monocytes # 0.8 K/mm3 (0.1-1.0); Monocytes % 8.5 % (1.7-9.3); Neutrophils # 6.1 K/mm3 (1.8-7.8); Neutrophils % 66.4 % (37.0-80.0); Platelet Count 272 K/mm3 (142-424); Red Cell Distribution Width 12.6 % (11.5-17.5); White Blood Count 9.2 K/mm3 (4.8-10.8)
[2022-04-29 15:29] LABS: Alanine Aminotransferase 18 U/L (12-78); Albumin Level 4.4 g/dl (3.5-5.0); Alkaline Phosphatase 110 U/L (38-126); Anion Gap 12.5 mEq/L (5-15); Aspartate Amino Transferase 29 U/L (17-59); Bilirubin,Indirect 0.2 mg/dL (0.0-0.9); Bilirubin,Total 0.2 mg/dl (0.2-1.3); Bilirubin,Unconjugated 0.2 mg/dL (0.0-1.1); Blood Urea Nitrogen 23 mg/dl (9-20); Calcium 9.5 mg/dl (8.4-10.2); Carbon Dioxide 28 mmol/L (22.0-30.0); Chloride 97 mmol/L (98-107); Chol/HDL Ratio 2.2 (1-3.5); Cholesterol 126 mg/dl (140-200); Estimated Glomerular Filt Rate 54 ml/min (>60); GFR (African American) 65 ML/MIN (>60); Glucose 94 mg/dl (74-100); HDL Cholesterol 58 mg/dl (40-60); Magnesium 2.2 mg/dl (1.6-2.3); Potassium 4.5 mmoL/L (3.5-5.1); Sodium 133 mmol/L (136-145); Total Protein,Serum 6.7 g/dl (6.3-8.2); Triglycerides 78 mg/dl (30-150); VLDL Cholesterol 16 mg/dL (0-40)
[2022-04-29 15:40] LABS: Direct LDL Cholesterol 44.92 mg/dL (100-129)
[2022-04-29 15:45] LABS: Free T4 (Free Thyroxine) 0.75 ng/dl (0.78-2.19)
[2022-04-29 15:59] LABS: Thyroid Stimulating Hormone 1.82 uIU/mL (0.465-4.68)
== END ==
PROVIDERS: PCP Family Medicine; Visit Provider Internal Medicine Cardiovascular Disease
DX: I25.10 Atherosclerotic heart disease of native coronary artery without angina pectoris; I11.9 Hypertensive heart disease without heart failure; E78.5 Hyperlipidemia, unspecified; I65.29 Occlusion and stenosis of unspecified carotid artery; I77.9 Disorder of arteries and arterioles, unspecified; Z95.5 Presence of coronary angioplasty implant and graft
CPT/HCPCS: 36415; 80048; 80061; 80076; 83735; 84439; 84443; 85025

== ENCOUNTER → 2022-06-09 11:15 | Outpatient (CLI) | payer MEDICARE, SELFPAY ==
--- NOTE | 2022-06-09 11:27 | XR_ITS ---
FINAL REPORT CLINICAL HISTORY: RT SIDED ABD PAIN RLQ ABDOMEN PAIN X 3 DAYS FINDINGS: ABDOMEN COMPLETE INCL DECUB/ERECT There is a normal bowel gas pattern. No abnormal calcification is identified. There are extensive postoperative changes in the lumbosacral spine. No free air is identified. IMPRESSION: No acute process. Reviewed, Interpreted and Dictated by Lakeshia Hardy MD Transcribed by Analy Luz Authenticated and . [facility]
== END ==
PROVIDERS: PCP Family Medicine; Visit Provider Physician Assistant
DX: R10.9 Unspecified abdominal pain (principal)
CPT/HCPCS: 74019

== ENCOUNTER → 2022-11-22 09:46 | Outpatient (CLI) | payer MEDICARE, SELFPAY ==
[2022-11-22 09:56] LABS: Microscopic, Urine URINE MICROSCOPIC (MICROSCOPIC)
[2022-11-22 10:23] LABS: Hematocrit 41.2 % (42.0-52.0); Hemoglobin 13.1 g/dL (14.1-18.0); Mean Corpuscular HGB Conc 31.8 g/dL (31.8-35.4); Mean Corpuscular Hemoglobin 30.5 pg (27.0-31.2); Mean Corpuscular Volume 95.9 fl (80-94); Platelet Count 255 K/mm3 (142-424); Red Blood Count 4.29 M/mm3 (4.60-6.20); Red Cell Distribution Width 12.8 % (11.5-17.5); White Blood Count 9.1 K/mm3 (4.8-10.8)
[2022-11-22 10:49] LABS: Albumin Level 3.9 g/dl (3.5-5.0); Blood Urea Nitrogen 22 mg/dl (9-20); Calcium 8.8 mg/dl (8.4-10.2); Carbon Dioxide 30 mmol/L (22.0-30.0); Chloride 103 mmol/L (98-107); Estimated Glomerular Filt Rate 54 ml/min (>60); GFR (African American) 65 ML/MIN (>60); Glucose 78 mg/dl (74-100); Phosphorous 3.3 mg/dl (2.5-4.5); Sodium 137 mmol/L (136-145)
[2022-11-22 11:43] LABS: Appearance,Urine CLEAR (Clear); Bilirubin,Urine Negative (Negative); Blood, Urine Negative (Negative); Color,Urine YELLOW (Yellow); Glucose,Urine (UA) 2+ (Negative); Ketones,Urine Negative (Negative); Leukocyte Esterase,Urine Negative (Negative); Nitrate,Urine Negative (Negative); PH,Urine 7.5 (5.0-8.5); Protein,Urine Negative (Negative); Urobilinogen,Urine 0.2 EU/dl (0.2)
[2022-11-22 13:34] LABS: Squamous Epithelial Cell,Urine Occasional #/hpf (0-5); WBC,Urine Occasional #/hpf (0-3)
[2022-11-22 14:47] LABS: Creatinine,Urine Random 81 mg/dL (Not Estab.)
== END ==
PROVIDERS: PCP Family Medicine; Visit Provider Internal Medicine Nephrology
DX: N18.31 Chronic kidney disease, stage 3a (principal)
CPT/HCPCS: 36415; 80069; 81001; 82570; 84155; 85014; 85018; 85048; 85049

== ENCOUNTER 2023-06-19 07:58 | Outpatient (CLI) | payer MEDICARE, SELFPAY ==
[2023-06-19 08:06] LABS: Microscopic, Urine URINE MICROSCOPIC (MICROSCOPIC)
[2023-06-19 08:21] LABS: Hematocrit 41.6 % (42.0-52.0); Hemoglobin 13.9 g/dL (14.1-18.0); Mean Corpuscular HGB Conc 33.4 g/dL (31.8-35.4); Mean Corpuscular Hemoglobin 32.3 pg (27.0-31.2); Mean Corpuscular Volume 96.9 fl (80-94); Platelet Count 247 K/mm3 (142-424); Red Blood Count 4.29 M/mm3 (4.60-6.20); Red Cell Distribution Width 12.7 % (11.5-17.5); White Blood Count 8.2 K/mm3 (4.8-10.8)
[2023-06-19 08:46] LABS: Appearance,Urine CLEAR (Clear); Bilirubin,Urine Negative (Negative); Blood, Urine Negative (Negative); Color,Urine YELLOW (Yellow); Glucose,Urine (UA) 3+ (Negative); Ketones,Urine Negative (Negative); Leukocyte Esterase,Urine Negative (Negative); Nitrate,Urine Negative (Negative); Protein,Urine Negative (Negative); Specific Gravity, Urine 1.015 (1.005-1.030); Urobilinogen,Urine 0.2 EU/dl (0.2)
[2023-06-19 09:10] LABS: Bacteria,Urine Trace /lpf; Squamous Epithelial Cell,Urine Occasional #/hpf (0-5)
[2023-06-19 09:57] LABS: Creatinine,Urine Random 151 mg/dL (Not Estab.)
[2023-06-19 10:39] LABS: Albumin Level 3.8 g/dl (3.5-5.0); Anion Gap 8.8 mEq/L (5-15); Blood Urea Nitrogen 23 mg/dl (9-20); Calcium 8.8 mg/dl (8.4-10.2); Carbon Dioxide 28 mmol/L (22.0-30.0); Chloride 99 mmol/L (98-107); Estimated Glomerular Filt Rate 46 ml/min (>60); GFR (African American) 55 ML/MIN (>60); Glucose 124 mg/dl (74-100); Phosphorous 3.6 mg/dl (2.5-4.5); Potassium 4.8 mmoL/L (3.5-5.1); Sodium 131 mmol/L (136-145)
[2023-06-19 10:53] LABS: Intact Parathyroid Hormone 73.8 pg/mL (7.5-53.5)
[2023-06-19 10:55] LABS: 25-OH Vitamin D, Total 33.8 ng/mL (30-100)
== END 2023-06-19 23:59 ==
LOC: LAB 07:59
PROVIDERS: PCP Family Medicine; Visit Provider Internal Medicine Nephrology
DX: N18.31 Chronic kidney disease, stage 3a (principal)
CPT/HCPCS: 36415; 80069; 81001; 82306; 82570; 83970; 84155; 85014; 85018; 85048; 85049

== ENCOUNTER 2023-07-10 15:23 | Outpatient (CLI) | payer MEDICARE, SELFPAY ==
--- NOTE | 2023-07-10 15:31 | XR_ITS ---
FINAL REPORT CLINICAL HISTORY: LEFT HIP PAIN COMPARISON: None. FINDINGS: AP and lateral views of the left femur were obtained. There is no acute osseous abnormality of the left femur. There is mild degenerative disease of the left hip. No acute soft tissue abnormality. Vascular calcifications are noted. IMPRESSION: Degenerative joint disease of the left hip. No acute osseous abnormality of the left femur. Authenticated and [facility]
--- NOTE | 2023-07-10 15:31 | XR_ITS ---
FINAL REPORT CLINICAL HISTORY: LEFT KNEE PAIN COMPARISON: None FINDINGS: AP, lateral and oblique views of the left knee were obtained. There is no prior exam for comparison. There is no acute osseous abnormality of the left knee. The joint space is preserved. The soft tissues are normal. There is no joint effusion. IMPRESSION: No acute osseous abnormality of the left knee. Reviewed, Interpreted and Dictated by Maribell Wyatt MD Transcribed by Lalita Abdullahi Authenticated and [facility]
== END 2023-07-10 23:59 ==
LOC: RAD 15:24
PROVIDERS: PCP Family Medicine; Visit Provider Family Medicine
DX: M25.552 Pain in left hip (principal); M70.62 Trochanteric bursitis, left hip; M25.562 Pain in left knee
CPT/HCPCS: 73552; 73562

== ENCOUNTER 2023-11-13 11:05 | Outpatient (CLI) | payer MEDICARE, SELFPAY ==
--- NOTE | 2023-11-13 11:11 | CA_ITS ---
FINAL REPORT TECHNIQUE: Color Doppler, duplex Doppler and ngo scale sonography of the bilateral neck arterial vasculature was performed. Velocities were measured in the carotid arteries. Stenosis evaluation based on the validated velocity criteria. CLINICAL HISTORY: CARLOS, CAD COMPARISON: None FINDINGS: The peak systolic velocity of the right common carotid artery is 149 cm/s. The peak systolic velocity of the right internal carotid artery is 135 cm/s and end diastolic velocity 23 cm/s. The ICA/CCA ratio is 1.25. A [id number] amount of plaque is present. The right external carotid artery is patent. The right vertebral artery is patent with antegrade flow. The peak systolic velocity of the left common carotid artery is 125 cm/s. The peak systolic velocity of the left internal carotid artery is 98 cm/s and end diastolic velocity 16 cm/s. The ICA/CCA ratio is 1.03. A [id number]-[id number] amount of plaque is present. The left external carotid artery is patent.The left vertebral artery is patent with antegrade flow. IMPRESSION: Less than 50% bilateral carotid stenoses. Bilateral patent vertebral arteries with antegrade flow. If indicated, CTA or MRA could further evaluate. Reviewed, Interpreted and Dictated by Esequiel Velasquez III, MD Transcribed by Lalita Abdullahi Authenticated and [facility]
== END 2023-11-13 23:59 | disposition home or self-care (01) ==
LOC: RT 11:06
PROVIDERS: PCP Family Medicine; Visit Provider Nurse Practitioner Family
DX: I65.23 Occlusion and stenosis of bilateral carotid arteries (principal); R42 Dizziness and giddiness; I11.9 Hypertensive heart disease without heart failure; I25.10 Atherosclerotic heart disease of native coronary artery without angina pectoris; I77.9 Disorder of arteries and arterioles, unspecified; E78.5 Hyperlipidemia, unspecified; Z87.891 Personal history of nicotine dependence
CPT/HCPCS: 93880

== ENCOUNTER 2024-02-01 09:23 | Outpatient (CLI) | payer MEDICARE, SELFPAY ==
--- NOTE | 2024-02-01 09:29 | XR_ITS ---
FINAL REPORT CLINICAL HISTORY: LT LOWER BACK PAIN COMPARISON: None FINDINGS: LUMBOSACRAL SPINE SERIES Five views of the lumbosacral spine were obtained. There is posterior fusion hardware bridging L3 through S2 with posterior laminectomy defect at the L4 and L5 levels. There is no fracture present. There is no malalignment. There are advanced hypertrophic changes of degenerative disc disease at L2-3. IMPRESSION: Degenerative and postoperative changes without acute process. Reviewed, Interpreted and Dictated by Chad Roldan MD Transcribed by Lalita Abdullahi Authenticated and [facility]
== END 2024-02-01 23:59 | disposition home or self-care (01) ==
LOC: RAD 09:25
PROVIDERS: PCP Family Medicine; Visit Provider Family Medicine
DX: M54.50 Low back pain, unspecified (principal)
CPT/HCPCS: 72110

== ENCOUNTER 2024-02-29 09:00 | Outpatient (RCR) | payer MEDICARE, SELFPAY ==
--- NOTE | 2024-01-31 13:29 | HMH.PTOPEV ---
PT Outpatient Evaluation Rehab PT Outpatient Evaluation Start: 01/31/24 08:11 Freq: Status: Active Protocol: Document 01/31/24 08:11 CIERRA (Rec: 01/31/24 13:28 CIERRA [id number]) E-signed By Lindsey Marx, PT Outpatient Therapy Subjective History Subjective History Pt is a 78 y/o male who reports onset of L posterior leg pain ~2-3 weeks ago after falling and landing on his buttocks. Pt reports pain worsened last after another near fall due to tripping over his dog causing him to step awkwardly to catch himself. Pt denies having recent imaging of his hip or back. Pt reports pain of the L posterior hip that extends to his knee. Pt also reports intermittent tingling of the L posterior leg to his ankle that is worse with sitting and improves with standing. Pt states he is getting frequent cramps of his left leg and foot as well. Pt denies low back pain or b/b dysfunction. Pt reports pain is aggravated by sitting/driving, transferring from sitting to standing, prolonged walking, walking on uneven ground, and stair climbing. Pt reports he has been applying lidocaine patches and using heat which seems to improve pain. Medical History: elevated LDL, CAD, chronic kidney disease, lumbar disc disease, plantar fasciitis (cortisone shot 3 weeks ago), hx lumbar fusion of L4-5 2016 New diagnosis of cancer in past 12 No months? Chief Complaint Pain Symptom Type Tingling Symptoms Relieved By Heat,OTC Meds Symptoms Aggravated By Physical Activity,Twisting, Walking Prior Functional Limitations None Current Functional Limitations Lifting,Housework,Driving, Sitting,Squatting,Walking, Stairs,Balance Symptom Description Constant but Variable Level of pain today (0-10) 5 Pain scale - at its best (0-10) 2 Pain scale - at its worst (0-10) 9 Lumbopelvic Eval Posture Lumbar Spine Posture Standing Position Flattened Gait Observation General Gait Pattern Observation Antalgic Gait,Decrease Weight Bear (L) Palapation tenderness bilateral buttock tenderness Yes: piriformis, left lumbar paraspinals Lumbar/Sacral Palpation Findings Tenderness Range of Motion Lumbar Spine Active Flexion Range of 50 p! Motion (degrees) Lumbar Spine Active Extension Range of 15 Motion (degrees) Left Lumbar Spine Lateral Flexion Active 15 Range of Motion (degrees) Right Lumbar Spine Lateral Flexion 15 Active Range of Motion (degrees) DTR Rt Patellar 2+ Lt Patellar 2+ Rt Gastroc/Soleus 2+ Lt Gastroc/Soleus 2+ Altered Sensation Bilateral Comment equal and intact to light touch sensation bilaterally Special Tests Hip Scouring (Quadrant) Test Negative Left,Negative Right Hip Issac (ANEUDY) Test Positive Left Sciatic Nerve Tension Test Negative Left,Negative Right Unilateral Straight Leg Raise (Lasegue) Negative Left,Negative Right Test Hip/Knee Eval Palpation Tenderness left Knee Palpation Finding Tenderness Knee Palpation Overall Comment 3/4 TTP of ischial tuberosity, piriformis, med/lat HS muscle belly MMT Hip Flexion Strength Grade 4- Good- Hip Abduction Strength Grade 4- Good- Hip Adduction Strength Grade 4- Good- Hip Extension Strength Grade 3 Fair Knee Extension Strength Grade 5 Normal Knee Flexion Strength Grade 4- Good- ROM Hip Flexion w/Knee Flexed Active Range 102 of Motion (degrees) Hip External Rotation Active Range of 35 Motion (degrees) Knee Extension Active Range of Motion ( 0 degrees) Knee Flexion Active Range of Motion ( 120 degrees) Lower Extremity Functional Index Activities Today, do you or would you have any difficulty at all with: a.Any of your usual work, housework or Moderate difficulty school activities b. Your usual hobbies, recreational or Quite a bit of difficulty sporting activities c. Getting into or out of the bath A little bit of difficulty d. Walking between rooms Moderate difficulty e. Putting on your shoes or socks Quite a bit of difficulty f. Squatting Quite a bit of difficulty g. Lifting an object, like a bag of Moderate difficulty groceries from the floor h. Performing light activities around Quite a bit of difficulty your home i. Performing heavy activities around Quite a bit of difficulty your home j. Getting into or out of a car Quite a bit of difficulty k. Walking 2 blocks Quite a bit of difficulty l. Walking a mile Quite a bit of difficulty m. Going up or down 10 stairs (about 1 Quite a bit of difficulty flight of stairs) n. Standing for 1 hour Quite a bit of difficulty o. Sitting for 1 hour A little bit of difficulty p. Running on even ground Quite a bit of difficulty q. Running on uneven ground Quite a bit of difficulty r. Making sharp turns while running fast Quite a bit of difficulty s. Hopping Quite a bit of difficulty t. Rolling over in bed A little bit of difficulty LEFI Score Lower Extremity Functional Index Score 29 Outpatient Therapy Assessment Impairments Problems/Impairmments Palpation Tenderness,Impaired Range of Motion,Impaired Strength,Impaired Transfers, Impaired Walking,Impaired Sitting,Impaired Driving, Impaired Household Care, Impaired Stair Climbing, Impaired Stepping on Uneven Surface,Impaired Squatting, Subjective C/O Pain,Impaired Self Care/Self Management Prognosis Rehab Potential Good Clinical Impression Consistent with Diagnosis Yes Short Term Goals Number of Weeks 3 Improve Transfers Yes: perform sit to stand with pain <7/10 Improve Gait Pattern without Assistive Yes: non-antalgic to decrease Device fall risk Improve LEFI Score Yes: Improve score to 40/80 to improve overall QOL Decrease Subjective C/O Pain Yes: Improve pain at worst to 7/10 to improve overall QOL Improve Self Care/Self Management Yes Patient to be Ind w/ HEP Yes Retirement Goals Number of Weeks 6 Decreased Palpation Tenderness Yes: 0-1/4 TTP of L hamstring and gluteal mm Increase Range of Motion Yes: Improve L hip AROM to WNL Increase Strength Yes: Improve LLE MMT to 4+/5 grossly to assist with function Improve Ability to Climb Stairs Yes: 1 flight reciprocally to assist with home navigation Improve Balance Yes: report ability to traverse uneven ground with pain <5/10 & w/o LOB Improve LEFI Score Yes: Improve score to 50-60/80 to improve overall QOL Decrease Subjective C/O Pain Yes: Improve pain at worst to 5/10 to improve overall QOL Patient to be Ind w/ Advanced HEP Yes Outpatient Therapy Plan of Care Treatment Plan May Include Therapeutic Exercise Including Home Yes Exercise Program Manual Therapy Techniques Yes Neuromuscular Re-education Yes Therapeutic Activities to Return to Yes Previous Functional/Work Level Gait Training Yes ADL/Self Care Education Yes Dry Needling Yes Thermal Modalities Yes Electrical Stimulation Yes Ultrasound/Phonophoresis Yes Iontophoresis Yes Vasopneumatic Compression Pump Yes Massage Yes Group Therapy for Medicare Yes Eval/Re-Eval Yes Aquatic Therapy Yes Frequency Times per week 2 Duration Number of Weeks 4-6 Addendums This patient is a candidate for social No or vocational rehab? Patient/Guardian verbally acknowledges Yes understanding of treatment program and consents to further treatment? Patient/Guardian verbally acknowledges Yes understanding of diagnosis, prognosis and goals for treatment? Eval Complexity PT Charges 17073 - Moderate Complexity Shoulder/Elbow Eval Shoulder Objective Measurements Elbow Objective Measurements PHYSICIAN CERTIFICATION: I certify the specified therapy services for Alex Fitzpatrick Alma are required, authorized, and reviewed every 30 days.
--- NOTE | 2024-02-29 10:05 | HMH.RHREAS ---
Rehab Reassessment Rehab OP Re-assessment Start: 01/31/24 08:11 Freq: Status: Active Protocol: Document 02/29/24 09:05 [email or web address] (Rec: 02/29/24 10:05 CIERRA [id number]) E-signed By Lindsey Marx PT Lower Extremity Functional Index Activities Today, do you or would you have any difficulty at all with: a.Any of your usual work, housework or No difficulty school activities b. Your usual hobbies, recreational or A little bit of difficulty sporting activities c. Getting into or out of the bath No difficulty d. Walking between rooms No difficulty e. Putting on your shoes or socks No difficulty f. Squatting No difficulty g. Lifting an object, like a bag of No difficulty groceries from the floor h. Performing light activities around No difficulty your home i. Performing heavy activities around A little bit of difficulty your home j. Getting into or out of a car No difficulty k. Walking 2 blocks No difficulty l. Walking a mile No difficulty m. Going up or down 10 stairs (about 1 No difficulty flight of stairs) n. Standing for 1 hour A little bit of difficulty o. Sitting for 1 hour No difficulty p. Running on even ground A little bit of difficulty q. Running on uneven ground Moderate difficulty r. Making sharp turns while running fast Moderate difficulty s. Hopping Moderate difficulty t. Rolling over in bed No difficulty LEFI Score Lower Extremity Functional Index Score 70 Rehab Re-assessment Subjective Subjective Pt reports he feels 85-90% improved since starting PT. Pt reports he has not experienced any pain of the left posterior hip/leg recently, but does report some stiffness with prolonged sitting. Pt also reports he seems more careful with quick movements but otherwise is able to do all functional activities well. Objective Objective Notes LLE palpation: 1/4 TTP of proximal HS mm L hip AROM: WNL LLE MMT: hip flex 5/5, hip abd 4+/5, hip add 4/5, hip ext 4/ 5, knee flex 5/5, knee ext 5/5 Assessment Progress Assessment Progressing as Expected Assessment Notes Pt has attended 9 PT treatment sessions consisting of aerobic exercise, hip mobility , LE stretching/strengthening, manual therapy, modalities and HEP with good tolerance. Pt demonstrated improved subjective report of pain, LEFS score, LE strength and functional activity tolerance since the initial evaluation. Pt met most PT goals and is appropriate to discharge to independent HEP at this time. Pt provided with updated written/illustrated HEP instructions to continue s/p discharge to continue strengthening the LLE. Patient goals met ST/6 LT/8 Goals Not Met hip ext/add strength Revised Goals n/a Plan Plan Discharge to independent HEP Time and Billing Re-Eval Time 10 Re-Eval Billing Units 1 PHYSICIAN CERTIFICATION: I certify the specified therapy services for Alex Marquez are required, authorized, and reviewed every 30 days.
== END 2024-02-29 23:59 | disposition home or self-care (01) ==
LOC: PT 09:00
PROVIDERS: Visit Provider Family Medicine
DX: M79.652 Pain in left thigh (principal)
CPT/HCPCS: 97014; 97035; 97110; 97163; G0283

== ENCOUNTER 2024-03-24 08:55 | Emergency (ER) | payer MEDICARE, SELFPAY ==
[2024-03-24 09:10] VITALS: BP 140/72; PULSE 72; RESP 19; TEMP 36.7; O2SAT 98; BMI 25.7
--- NOTE | 2024-03-24 09:26 | ED_ITS ---
Discharge Plan Disposition Patient Disposition: Home, Self-Care Condition: Good Prescriptions Prescriptions: New doxycycline hyclate 100 mg capsule 100 mg PO BID 14 Days Qty: 28 0RF No Action losartan 50 mg tablet 50 mg PO DAILY atorvastatin 40 mg tablet 40 mg PO DAILY triamterene-hydrochlorothiazid 37.5-25 mg tablet 1 tab PO DAILY bupropion HCl 150 mg tablet extended release 24 hr 150 mg PO DAILY dapagliflozin propanediol [Farxiga] 5 mg tablet 5 mg PO DAILY Referrals Follow up/Referrals: Chris Perez MD [Primary Care Provider] - See instructions Activity Restrictions/Add. Instructions Additional Instructions/Restrictions: Antibiotics as ordered Follow-up with PCP this week Follow-up with PCP regarding lab work If any worsening or no improvement return or be seen in the ER Clinical Impressions Clinical Impression: Tick bite of abdomen Instructions Patient Instructions: How to Remove a Tick, Protect Yourself from Tickborne Illnesses Print Language Print Language: Guamanian Discharge ED Provider: Pamela ([facility])[place] [facility] [place] General Stated complaint: tick bite on stomach redness and painful Mode of Arrival: Ambulatory Source of Information: Patient Limitations: No Limitations Time Seen by Provider: 03/24/24 09:26 Description of Symptoms (Recalled from Triage Doc. by RN): PATIENT C/O TICK BITE TO ABDOMEN THAT HE NOTICED THIS MORNING. REDNESS NOTED TO AREA HEENT Symptoms (Recalled from RN notes): No Resp Symptoms (Recalled from RN notes): No Skin Symptoms (Recalled from RN notes): Yes MS Symptoms (Recalled from RN notes): No Functional Status (Recalled from RN notes): WNL History of Present Illness Provider Complaint: 78-year-old male presents for a tick bite to the abdomen. Patient states he just noticed it this morning and pulled the tick out. Patient states the tick came out in pieces. Related Data Home Medications ?Medication ?Instructions ?Recorded ?Confirmed atorvastatin 40 mg tablet 40 mg PO DAILY 03/24/24 03/24/24 bupropion HCl 150 mg 24 hr tablet, 150 mg PO DAILY 03/24/24 03/24/24 extended release dapagliflozin propanediol 5 mg 5 mg PO DAILY 03/24/24 03/24/24 tablet (Farxiga) losartan 50 mg tablet 50 mg PO DAILY 03/24/24 03/24/24 triamterene 37.5 1 tab PO DAILY 03/24/24 03/24/24 mg-hydrochlorothiazide 25 mg tablet Previous Rx's ?Medication ?Instructions ?Recorded doxycycline hyclate 100 mg capsule 100 mg PO BID 14 days #28 caps 03/24/24 Allergies Allergy/AdvReac Type Severity Reaction Status Date / Time No Known Drug Allergies Allergy Unknown Verified 02/13/24 15:25 [NKDA] Worker's Comp Is this a Worker's Comp case?: [facility] Disclaimer: The information contained in this section may have been updated after the patient was seen, as this information can be updated by other users. Medical History , [employer]) Nasal sinus congestion HHD (hypertensive heart disease) CAD (coronary artery disease) Social History , [employer]) Smoking Status: Former smoker alcohol intake: never substance use type: denies use current occupational status: retired Travel in the last 8 weeks: Inside the [place] household members: spouse ROS Obtained: Yes Systems reviewed as appropriate & no additional complaints except as documented Integumentary/Breasts Skin/Breast: Reports system reviewed and no additional complaints, except as documented, Reports as per HPI and Reports other (Tick bite with redness) Physical Exam General General appearance: alert and in no apparent distress Head Head exam: atraumatic Eye Eye exam: Present normal appearance ENT ENT exam: Present normal exam Respiratory Respiratory exam: Present normal lung sounds bilaterally Cardiovascular Cardiovascular exam: Present regular rate and normal rhythm Abdominal Exam Abdominal exam: Present soft; Absent distention or tenderness Neurological Exam Neurological exam: Present alert and oriented X3 Skin Skin exam: Present warm Expanded Skin Exam Type of lesion: Present bite/sting Body image: 2 1. Red bite area. Medical Decision Making Medical Records Medical records reviewed: Yes I reviewed the patient's medical records. Screening: Per USPSTF and CDC recommendations, given the prevalence of disease in our region, it is our hospital?s policy to screen for HIV and viral Hepatitis for all patients aged 18 and over and those with ongoing risk factors. Carlos Inquiry Pt receiving controlled substance: No Carlos was queried for this patient: No Vital Signs: 03/24/24 09:10 Temperature 98.1 F Temperature Source Oral Pulse Rate [Left Brachial] 72 Respiratory Rate 19 Blood Pressure [Left Arm] 140/72 Blood Pressure Mean [Left Arm] 94 Blood Pressure Source [Left Arm] Automatic Cuff Blood Pressure Position [Left Arm] Sitting 02 Sat by Pulse Oximetry 98 Oxygen Delivery Method Room Air Medical Decision Narrative: Area cleaned and explored for remains on the tech none identified
[2024-03-24 10:03] VITALS: BP 140/72; PULSE 72; RESP 19; TEMP 36.7; O2SAT 98
[2024-03-28 07:18] LABS: Lyme B. burgdorferi PCR Blood Negative (Negative)
[2024-04-10 09:03] LABS: RMSF, IgG, EIA <1:64
[2024-04-10 09:04] LABS: Rocky Mtn Spotted Fever, IgM <1:64
== END 2024-03-24 10:05 | disposition home or self-care (01) ==
PROVIDERS: Emergency Provider Nurse Practitioner Family; PCP Psychiatry & Neurology Sleep Medicine
DX: S30.861A Insect bite (nonvenomous) of abdominal wall, initial encounter (principal); W57.XXXA Bitten or stung by nonvenomous insect and other nonvenomous arthropods, initial encounter
CPT/HCPCS: 86609; 87476; 99213; G0381

== ENCOUNTER 2024-05-14 10:55 | Outpatient (CLI) | payer MEDICARE, SELFPAY ==
--- NOTE | 2024-05-14 10:59 | XR_ITS ---
FINAL REPORT CLINICAL HISTORY: Right Foot Pain COMPARISON: 04/19/2019 FINDINGS: AP, oblique and lateral views of the right foot were obtained. There is no acute fracture or dislocation. There has been progression of advanced degenerative disease at the first MTP joint. There may be a hammertoe deformity of the distal second toe. Soft tissues are unremarkable. IMPRESSION: Degenerative changes without acute osseous abnormality of the right foot. Reviewed, Interpreted and Dictated by Maribell Wyatt MD Transcribed by Lalita Abdullahi Authenticated and [facility]
== END 2024-05-14 23:59 | disposition home or self-care (01) ==
LOC: RAD 10:56
PROVIDERS: PCP Family Medicine; Visit Provider Podiatrist
DX: M79.671 Pain in right foot (principal)
CPT/HCPCS: 73630

== ENCOUNTER 2024-05-27 15:33 | Outpatient (CLI) | payer MEDICARE, SELFPAY ==
--- NOTE | 2024-05-27 15:39 | XR_ITS ---
FINAL REPORT CLINICAL HISTORY: BURSITIS OF RIGHT DELTOID COMPARISON: None FINDINGS: 3 views show no evidence of an acute, displaced fracture or dislocation of the visualized bony architecture. Mild degenerative joint disease of the glenohumeral and acromioclavicular joints is present. There are small joint bodies present in the inferior axillary recess adjacent to the glenoid, measuring up to 3 mm in size. IMPRESSION: Degenerative changes. No acute bony abnormality. Reviewed, Interpreted and Dictated by Lakeshia Hardy MD Transcribed by Phuong Galaviz Authenticated and [facility]
== END 2024-05-27 23:59 | disposition home or self-care (01) ==
LOC: RAD 15:34
PROVIDERS: PCP Family Medicine; Visit Provider Family Medicine
DX: M75.51 Bursitis of right shoulder (principal)
CPT/HCPCS: 73030

== ENCOUNTER 2024-07-03 12:53 | Outpatient (CLI) | payer MEDICARE, SELFPAY ==
--- NOTE | 2024-07-03 12:57 | MR_ITS ---
FINAL REPORT TECHNIQUE: Multiplanar and multisequence imaging of the shoulder was obtained without contrast. CLINICAL HISTORY: TENDINITIS RUE weakness in arm fell on shoulder 1 month ago FINDINGS: Bones and joints: There is no acute fracture, edema, or pathologic marrow replacement. Acromioclavicular joint degenerative disease is present and there is osteophytosis which narrows the supraspinatus outlet. There is also degenerative joint disease of the glenohumeral joint. Rotator cuff: There is a high-grade partial-thickness articular sided tear of the supraspinatus tendon involving greater than 50%. There is a partial thickness articular sided infraspinatus tendon tear. The subscapularis tendon is intact. There is no fatty atrophy of the rotator cuff muscles. Labrum: The inferior glenohumeral ligament is intact. There is a tear of the biceps tendon at the biceps labral complex. There is a SLAP type II tear of the superior labrum which extends posteriorly to involve nearly the entire posterior labrum. Other: There is a joint effusion. There is fluid in the subdeltoid and subcoracoid bursa's. Remaining soft tissues are within normal limits. IMPRESSION: Partial articular sided tears of the supraspinatus and infraspinatus tendons. Tear of the biceps tendon at the biceps labral complex. SLAP type II tear of the superior labrum involving nearly the entire posterior labrum. Degenerative joint disease. Reviewed, Interpreted and Dictated by Maribell Wyatt MD Transcribed by Analy Luz Authenticated and [facility]
== END 2024-07-03 23:59 | disposition home or self-care (01) ==
LOC: RAD 12:54
PROVIDERS: PCP Family Medicine; Visit Provider Family Medicine
DX: M75.21 Bicipital tendinitis, right shoulder (principal)
CPT/HCPCS: 73221

== ENCOUNTER 2024-07-08 08:00 | Outpatient (RCR) | payer MEDICARE, SELFPAY | END 2024-07-08 23:59 | disposition home or self-care (01) | LOC: OT 08:00 | PROVIDERS: PCP Family Medicine; Visit Provider Family Medicine | DX: M75.21 Bicipital tendinitis, right shoulder (principal) | CPT/HCPCS: 97014; 97140; 97165; 97530; G0283 ==

== ENCOUNTER 2024-09-10 08:00 | Outpatient (RCR) | payer MEDICARE, SELFPAY | END 2024-09-10 23:59 | disposition home or self-care (01) | LOC: PT 08:00 | PROVIDERS: PCP Family Medicine; Visit Provider Orthopaedic Surgery | DX: M75.111 Incomplete rotator cuff tear or rupture of right shoulder, not specified as traumatic (principal); S43.431A Superior glenoid labrum lesion of right shoulder, initial encounter | CPT/HCPCS: 97110; 97163 ==

== ENCOUNTER 2024-09-17 16:00 | Outpatient (RCR) | payer MEDICARE, SELFPAY | END 2024-09-17 23:59 | disposition home or self-care (01) | LOC: PT 16:00 | PROVIDERS: PCP Family Medicine; Visit Provider Orthopaedic Surgery | DX: S43.439A Superior glenoid labrum lesion of unspecified shoulder, initial encounter (principal) | CPT/HCPCS: 97110; 97530 ==

== ENCOUNTER 2025-03-18 13:42 | Outpatient (CLI) | payer MEDICARE, SELFPAY ==
[2025-03-18 14:45] LABS: Hematocrit 42.0 % (42.0-52.0); Hemoglobin 13.5 g/dL (14.1-18.0); Immature Granulocytes % 0.4 %; Mean Corpuscular HGB Conc 32.1 g/dL (31.8-35.4); Mean Corpuscular Hemoglobin 31.8 pg (27.0-31.2); Mean Corpuscular Volume 99.1 fl (80-94); Nucleated Red Blood Cells % 0 %; Platelet Count 271 K/mm3 (142-424); Red Blood Count 4.24 M/mm3 (4.60-6.20); Red Cell Distribution Width-SD 48.1 fL; White Blood Count 9.4 K/mm3 (4.8-10.8)
[2025-03-18 14:52] LABS: Alanine Aminotransferase 17 U/L (12-78); Albumin Level 4.1 g/dl (3.5-5.0); Alkaline Phosphatase 91 U/L (38-126); Anion Gap 10.5 mEq/L (5-15); Aspartate Amino Transferase 24 U/L (17-59); Bilirubin,Direct 0.1 mg/dl (0.0-0.4); Bilirubin,Indirect 0.4 mg/dL (0.0-0.9); Bilirubin,Total 0.5 mg/dl (0.2-1.3); Bilirubin,Unconjugated 0.4 mg/dL (0.0-1.1); Blood Urea Nitrogen 22 mg/dl (9-20); Calcium 9.5 mg/dl (8.4-10.2); Carbon Dioxide 28 mmol/L (22.0-30.0); Chloride 99 mmol/L (98-107); Cholesterol 127 mg/dl (140-200); Creatinine,Serum 1.40 mg/dl (0.66-1.25); Estimated Glomerular Filt Rate 49 ml/min (>60); GFR (African American) 59 ML/MIN (>60); Glucose 100 mg/dl (74-100); HDL Cholesterol 55 mg/dl (40-60); Magnesium 2.0 mg/dl (1.6-2.3); Potassium 4.5 mmoL/L (3.5-5.1); Sodium 133 mmol/L (136-145); Total Protein,Serum 7.0 g/dl (6.3-8.2); Triglycerides 66 mg/dl (30-150)
[2025-03-18 15:08] LABS: Free T4 (Free Thyroxine) 0.74 ng/dl (0.78-2.19)
[2025-03-18 15:22] LABS: Thyroid Stimulating Hormone 1.52 uIU/mL (0.465-4.68)
== END 2025-03-18 23:59 | disposition home or self-care (01) ==
LOC: LAB 13:43
PROVIDERS: PCP Family Medicine; Visit Provider Nurse Practitioner Family
DX: I25.10 Atherosclerotic heart disease of native coronary artery without angina pectoris (principal); E78.5 Hyperlipidemia, unspecified; I11.9 Hypertensive heart disease without heart failure
CPT/HCPCS: 36415; 80048; 80061; 80076; 83735; 84439; 84443; 85025

== ENCOUNTER 2025-04-15 09:54 | Outpatient (CLI) | payer MEDICARE, SELFPAY ==
--- NOTE | 2025-04-15 09:58 | XR_ITS ---
FINAL REPORT CLINICAL HISTORY: evaluate right foot deformity COMPARISON: 05/14/2024 FINDINGS: AP, oblique and lateral views of the right foot were obtained. There is no acute fracture or dislocation. 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 There is prominent inferior calcaneal spur. Hammertoe deformity of the 2nd digit is unchanged. Soft tissues are unremarkable. IMPRESSION: No acute osseous abnormality of the right foot. Degenerative/chronic changes. Reviewed, Interpreted and Dictated by Maribell Wyatt MD Transcribed by Lalita Abdullahi Authenticated and [facility]
--- OUTSIDE RECORDS SUMMARY | 2025-04-15 10:03 | XMS_ITS | Clinical Summary ---
Author Organization Healthcare Address [address] [place] [address] Care Team Providers Care Pmo Business Analyst Name Role Phone Rodrigo Perez MD Primary Care Provider [phone] Allergies No known active allergies Medications nitroglycerin (Nitrostat) 0.[address] 1 tablet (0.4 mg) under the tongue every 5 (five) minutes if needed. Active Boswellia-Gluco samine-Vit D (Osteo Bi-Flex One Per Day) tablet Take by mouth. Active Coenzyme Q10 (Co Q 10) 100 MG capsule Take by mouth 1 (one) time each day. Active cholecalciferol (Vitamin D3) 25 MCG (1000 UT) tablet Take 1 tablet (1,000 Units) by mouth 1 (one) time each day. Active aspirin 81 MG EC tablet Take 1 tablet (81 mg) by mouth 1 (one) time each day. Active sildenafil (Viagra) 50 MG tablet Take 50 mg by mouth 1 (one) time each day if needed. Active oxazepam (Serax) 15 MG capsule Take 15 mg by mouth at night if needed. Active losartan (Cozaar) 50 MG tablet Take 1 tablet (50 mg) by mouth 2 (two) times a day. Active dapagliflozin (Farxiga) 5 MG tablet Take 1 tablet (5 mg) by mouth 1 (one) time each day. Active atorvastatin (Lipitor) 40 MG tablet Take 1 tablet (40 mg) by mouth 1 (one) time each day. Active triamterene-hyd roCHLOROthiazid e (Dyazide) 37.5-25 MG capsule Take 1 capsule by mouth 1 (one) time each day in the morning. Active cyanocobalamin 1000 MCG tablet Take 1 tablet (1,000 mcg) by mouth 1 (one) time each day. Active LORazepam (Ativan) 0.5 MG tablet Take 1 tablet (0.5 mg) by mouth every 6 (six) hours if needed for anxiety. Active buPROPion XL (Wellbutrin XL) 150 MG 24 hr tablet 11/19/2022 Active sildenafil (Revatio) 20 MG tablet 05/10/2023 Active triamterene-hyd rochlorothiazid e (Maxzide-25) 37.5-25 MG tablet 03/31/2023 Active Social History Tobacco Use Types Packs/Day Years Used Date Smoking Tobacco: Former Cigarettes Passive Smoke Exposure: Never Smokeless Tobacco: Never Tobacco Cessation:Counseling Given: Not Answered Alcohol Use Standard Drinks/Week Comments Yes 0 (1 standard drink = 0.6 oz pur e alcohol) Sex and Gender Information Value Date Recorded Sex Assigned at Not on file Legal Sex Male 11:43 AM EDT Gender Identity Not on file Sexual Orientation Not on file Last Filed Vital Signs Vital Sign Reading Time Taken Comments Blood Pressure 130/71 06/23/2023 11:17 AM EST Pulse 77 06/23/2023 11:17 AM EST Temperature - - Respiratory Rate 16 06/15/2023 4:10 PM EST Oxygen Saturation 97% 06/23/2023 11:17 AM EST Inhaled Oxygen Concentration - - Weight 88 kg (194 lb) 06/23/2023 11:17 AM EST Height 185.4 cm (6' 1 ) 06/23/2023 11:17 AM EST Body Mass Index 25.6 06/23/2023 11:17 AM EST Plan of Treatment Health Maintenance Due Date Last Done Comments [facility]-Depression Screening 1945 [facility]-Hepatitis C Screening 1945 [facility]Medicare Annual Wellness (AWV) 1945 [facility]-/Child/Adol SDOH Screenings 1945 [facility]- SDOH Screenings 07/23/1965 [facility]-Adult SDOH Screenings 07/23/1965 [facility]-DTaP,Tdap,and Td Vaccines (1 - Tdap) 07/23/1966 [facility]-Pneumococcal Vaccine: 50+ Years (1 of 1 - PCV) 07/23/1997 [facility]-Zoster Vaccines (1 of 2) 07/23/1997 [facility]-RSV Vaccine: 60+ Years or (1 - 1-dose 75+ series) 07/23/2022 [id number] Vaccine (6 - 2024- season) 2025 02/09/2022, 12/09/2021, 03/10/2021, Additional history exists [facility]-Influenza Vaccine (#1) 01/13/202502/04, 02/22/2021, 02/11/2020, Additional history exists [facility]-Obesity Intervention Completed 024, 06/15/2023, 11/25/2022 HPV Vaccines Aged Out No longer eligi ble based on patient's age to complete this topic [facility]-HIB Vaccines Aged Out No longer e ligible based on patient's age to complete this topic [facility]-Hepatitis A Vaccines Aged Out No longer eligible based on patient's age to complete this topic [facility]-IPV Vaccines Aged Out No longer e ligible based on patient's age to complete this topic [facility]-Rotavirus Vaccines Aged Out No lo nger eligible based on patient's age to complete this topic Insurance [facility] MEDICARE Care Teams Pmo Business Analyst Relationship Specialty Start Date End Date Rodrigo Perez MD [address] [place] [id number] PCP - General 03/22/22
[2025-04-15 10:42] LABS: Hematocrit 44.5 % (42.0-52.0); Hemoglobin 14.6 g/dL (14.1-18.0); Immature Granulocytes % 0.2 %; Mean Corpuscular HGB Conc 32.8 g/dL (31.8-35.4); Mean Corpuscular Hemoglobin 31.7 pg (27.0-31.2); Mean Corpuscular Volume 96.7 fl (80-94); Nucleated Red Blood Cells % 0 %; Platelet Count 292 K/mm3 (142-424); Red Blood Count 4.60 M/mm3 (4.60-6.20); Red Cell Distribution Width-SD 45.3 fL; White Blood Count 9.1 K/mm3 (4.8-10.8)
[2025-04-15 11:32] LABS: Albumin Level 4.3 g/dl (3.5-5.0); Chloride 94 mmol/L (98-107); Potassium 5.0 mmoL/L (3.5-5.1); Sodium 133 mmol/L (136-145)
[2025-04-15 11:35] LABS: Alanine Aminotransferase 22 U/L (12-78); Albumin/Globulin Ratio 1.6 (1.1-1.8); Alkaline Phosphatase 97 U/L (38-126); Anion Gap 15.0 mEq/L (5-15); Aspartate Amino Transferase 34 U/L (17-59); Bilirubin,Total 0.5 mg/dl (0.2-1.3); Blood Urea Nitrogen 22 mg/dl (9-20); Calcium 9.0 mg/dl (8.4-10.2); Carbon Dioxide 29 mmol/L (22.0-30.0); Creatinine,Serum 1.90 mg/dl (0.66-1.25); Estimated Glomerular Filt Rate 35 ml/min (>60); GFR (African American) 42 ML/MIN (>60); Globulin 2.7 g/dL (1.3-3.2); Glucose 88 mg/dl (74-100); Total Protein,Serum 7.0 g/dl (6.3-8.2)
== END 2025-04-15 23:59 | disposition home or self-care (01) ==
LOC: LAB 09:56
PROVIDERS: PCP Family Medicine; Visit Provider Podiatrist
DX: M20.11 Hallux valgus (acquired), right foot (principal); M77.51 Other enthesopathy of right foot and ankle; G57.81 Other specified mononeuropathies of right lower limb; E55.9 Vitamin D deficiency, unspecified
CPT/HCPCS: 36415; 73630; 80053; 82652; 85025

== ENCOUNTER 2025-05-02 08:49 | Outpatient (CLI) | payer MEDICARE, SELFPAY ==
--- OUTSIDE RECORDS SUMMARY | 2024-05-27 04:45 | XMS_ITS ---
Author Organization [facility] Address [address] [place] [id number] Care Team Providers Care Principal Developer Name Role Phone Pierce Perez Primary Care Provider Allergies No Known Allergies Results Component Value Reference Range Notes P-Comprehensive Metabolic Pa gia (CMP) Reviewed date:05/29/2024 08:40:48 AM Interpretation:bun 26, Cr 1.54, gfr 46 Performing Lab: Notes/Report: Test performed by [email or web address] [address] [place] [address] , [address], [place] [address] Saúl Pulliam MD, Hide Handler CLIA: [id number] Sodium 137 135-145 mmol/L Potassium 5.0 3.5-5.3 mmol/L Chloride 99 97-108 mmol/L CO2 28 22-32 mmol/L Glucose 96 65-99 mg/dL BUN 26 8-23 mg/dL Creatinine 1.54 0.70-1.30 mg/dL Calcium 9.2 8.6-10.4 mg/dL eGFR by Creatinine 46 >59 mL/min/1.73m2 Protein 6.7 6.0-8.3 g/dL Albumin 4.4 3.5-5.3 g/dL Alkaline Phosphatase 98 40-129 IU/L ALT (SGPT) 14 <5-55 IU/L AST (SGOT) 20 <5-46 IU/L Bilirubin, Total 0.5 <0.2-1.2 mg/dL A/G Ratio 1.9 1.1-2.5 X ray : Shoulder, right Reviewed date:05/29/2024 08:40:48 AM Interpretation:degenerative changes Performing Lab: Notes/Report: degenerative changes REASON FOR VISIT Fell and Hurt Shoulder, Wants Referral Medications Medication SIG (Take, Route, Frequency, Duration) Notes Start Date End Date Status Farxiga 5 MG 1 tablet Orally Once a day; Duration: 90 days Active buPROPion HCl ER (XL) 150 MG 1 tab(s) orally once daily; Duration: 90 days Active Atorvastatin Calcium 40 mg 1 tablet Orally Once a day; Duration: 90 days Active Losartan Potassium 50 mg 1 tablet Orally twice a day; Duration: 90 days Active Triamterene-HCTZ 37.5-25 MG 1/2 orally once a day; Duration: 90 days Active Nitroglycerin 0.4 MG 1 tab sublingually every 5 minutes prn 12/15/2021 Active Aspirin 81 MG 1 tab orally once daily Active Fluticasone Propionate 50 MCG/ACT 1 spray in each nostril Nasally Once a day 12/15/2023 Active Sildenafil Citrate 20 MG 3 orally as dir ected; Duration: 30 day(s) 09/07/2022 Active Hydrocortisone 2.5 % 1 application Externally Once a day 01/11/2023 Active CoQ10 100 MG 1 cap(s) orally once a day 12/21/2010 Active OSTEO-BIFLEX 1500 MG 1 P.O. ONCE A DAY Active Diclofenac Sodium 1 % as directed applie d topically 4 times a day Active Efudex 5 % 1 application Externally Twice a week 04/17/2023 Not-Taki ng Vitamin D3 25 MCG (1000 UT) 1 tab(s) orally once a day; Duration: 30 day(s) Active LORazepam 0.5 MG 1 tab(s) orally 3 ti mes a day as needed 05/21/2024 Active Potassium Chloride ER 10 MEQ 1 tablet with food Orally Once a day; Duration: 30 day(s) 05/02/2024 Active Medrol 4 MG as directed orally daily; Duration: 6 days 05/27/2024 Active Vital Signs Weight 194.2 lbs 05/27/2024 Blood pressure systolic 120 mm Hg 05/27/19 25 Blood pressure diastolic 62 mm Hg 025 Heart Rate 77 /min 05/27/2024 Height 73 in 05/27/2024 BMI 25.62 kg/m2 05/27/2024 Encounters Encounter Location Date Provider Diagnosis [facility] [address] [facility] 36 [facility] [address] [place] [id number] 05/27/2024 Pierce Perez Bursitis of right deltoid M75.51 and Hyponatremia E87.1 Assessments Encounter Date Diagnosis (ICD Code) Assessment Notes Treatment Notes Treatment Clinical Notes Section Notes 05/27/2024 Bursitis of right deltoid (ICD-10 - M75.51) 05/27/2024 Hyponatremia (ICD-10 - E87.1) Plan Of Treatment Medication Medication Name Sig Start Date Stop Date Notes Medrol 4 MG as directed orally daily; Duration: 6 days Next Appt Details Follow Up: 2 Weeks, Reason: Provider Name:Pierce Morales er, 10/24/2025 09:30:00 AM, [address] [facility], [address], [place], [phone], Progress Notes * Alex MARQUEZDOB:0 1945 (79 yo M)Acc No.[id number]:05/27/2024 Progress Notes Patient: Alex NASCIMENTO Amari Provider: Pierce Perez M.D. :1945 A ge:78 Y S ex:Male Date:05/27/2024 Address:[address] [place] [address] [id number] Subjective: * Chief Complaints: * 1 . Fell and Hurt Shoulder, Wants Referral. * HPI: S houlder/Upper arm: The pt states he fell on the ice about 3 days ago and hit his right shoulder, Pt states the pain is worse with raising his arm very high. Pt states he would also like to discuss his diet. 78 year old male presents with c/o shoulder pain. * ROS: D ERMATOLOGY: no R isacc. n o H inocente. G ASTROENTEROLOGY: no N ausea. n o V omiting. n o D iarrhea.? U ROLOGY: no D ifficulty urinating. n o B lood in urine. * Medical History: e levated LDL cholesterol, neg GXT 1999, 11/2010 retinal vein occlusion with bleed, Dr. Simons, Cardiolyte GXT 03/10/11, 01/20/2012 CXR stable, Stent mid LAD and LCx, Dr. Boswell 2009, Coronary Artery Disease, Chronic kidney disease, Lumbar Disc Disease. * Surgical History: h ernia repair x 2 , bone chip removed causing sciatica-Dr. Hurst 1999, hernia ( left) 01/2008, 2 stents 02/2010, back surgery 05/03/2016, Heart Cath 08/2018, Colonoscopy, Dr. Roberts 08/06/2015, Colonoscopy, Dr. Roberts 2004, Dr. Lau, plantar fasciitis 2019, OS irridectomy 07/2021. * Family History: F ather: unknown. M other: unknown. adopted-no medical hx. * Social History: C URRENT TOBACCO USE S moking Status: Patient does NOT smoke, Second hand smoke exposure: No. C affeine: yes, frequency: no more than a cup of coffee in the morning. Marital Status: . Past smoking status: no, smoked total of 12 yrs, quit 25 yrs ago. Alcohol: Yes, Type: , Frequency:daily socially ,Years: , Determination:. * Medications: T aking Diclofenac Sodium 1 % Gel as directed applied topically 4 times a day , Taking OSTEO-BIFLEX 1500 MG 1 P.O. ONCE A DAY , Taking CoQ10 100 MG Capsule 1 cap(s) orally once a day , Taking Vitamin D3 25 MCG (1000 UT) Tablet 1 tab(s) orally once a day , Taking Aspirin 81 MG Tablet Delayed Release 1 tab orally once daily , Taking Nitroglycerin 0.4 MG Tablet Sublingual 1 tab sublingually every 5 minutes prn , Taking Hydrocortisone 2.5 % Ointment 1 application Externally Once a day , Taking Sildenafil Citrate 20 MG Tablet 3 orally as directed , Taking Fluticasone Propionate 50 MCG/ACT Suspension 1 spray in each nostril Nasally Once a day , Taking Triamterene-HCTZ 37.5-25 MG Tablet 1/2 orally once a day , Taking Atorvastatin Calcium 40 mg Tablet 1 tablet Orally Once a day , Taking buPROPion HCl ER (XL) 150 MG Tablet Extended Release 24 Hour 1 tab(s) orally once daily , Taking Farxiga 5 MG Tablet 1 tablet Orally Once a day , Taking Losartan Potassium 50 mg Tablet 1 tablet Orally twice a day , Taking Potassium Chloride ER 10 MEQ Tablet Extended Release 1 tablet with food Orally Once a day , Taking LORazepam 0.5 MG Tablet 1 tab(s) orally 3 times a day as needed , Not-Taking Efudex 5 % Cream 1 application Externally Twice a week , Medication List reviewed and reconciled with the patient * Allergies: N .K.D.A. Objective: * Vitals: W t:194.2, Temp:97.5, BP:120/62, HR:77, Nurse:DIANA, Ht: 73, BMI:25.62. * Examination: G eneral Examination: General Appearance: N AD. H EENT: u nremarkable.?Neck: s upple, no lymphadenopathy. C hest: n ormal shape and expansion. H eart:?RSR. L ungs: c lear to auscultation. N eurologic Exam: I ntact, gait normal. Skin: n ormal, no rash. P eripheral pulses: n ormal . E xtremities: n o leg edema, tender over deltoid and deltoid insertion. Assessment: * Assessment: 1. B ursitis of right deltoid - M75.51 (Primary) 2 . H yponatremia - E87.1? Plan: * Treatment: 2.?Hyponatremia?LAB: P-Comprehensive Metabolic Panel (CMP) (Collection Date & Time - 05/27/2024 09:45 AM)?bun 26, Cr 1.54, gfr 46* Value Reference Range A /G Ratio 1.9 1.1-2.5 - * A lbumin 4.4 3.5-5.3 - g/dL * A lkaline Phosphatase 98 40-129 - IU/L * A LT (SGPT) 14 <5-55 - IU/L * A ST (SGOT) 20 <5-46 - IU/L * B ilirubin, Total 0.5 <0.2-1.2 - mg/dL * B UN 26 H 8-23 - mg/dL * C alcium 9.2 8.6-10.4 - mg/dL * C hloride 99 97-108 - mmol/L * C O2 28 22-32 - mmol/L * C reatinine 1.54 H 0.70-1.30 - mg/dL * G lucose 96 65-99 - mg/dL * P otassium 5.0 3.5-5.3 - mmol/L * S odium 137 135-145 - mmol/L * P rotein 6.7 6.0-8.3 - g/dL * e GFR by Creatinine 46 L >59 - mL/min/1.73m2 * Jakob Gordilloia 05/29/2024 8:40: 42 AM >See phone encounter * Follow Up: 2 Weeks * Images: Billing Information: * Visit Code: 30823 Office Visit, Est Pt., Level 3. * Procedure Codes: * Electronic signature of Pierce Perez MD on 05/02/2025 at 08:53 AM EST Sign off status: Pending * Provider: Pierce Perez M.D. Date: 0 05/27/2024 Generated for Shyami meri/Ab/eTransmitting on: 07/03/2024 08:53 AM EST History and Physical Notes * HPI (History of Present Illness) Category Sub-Category Detail Notes Category Not es Shoulder/Upper arm shoulder pain Examination Category Sub-Category Detail Notes Category Not es General Examination HEENT: unremarkable Heart: RSR Lungs: clear to auscultatio n Extremities: no leg edema, tender over deltoid and deltoid insertion General Appearance: NAD Skin: normal, no rash Neurologic Exam: Intact, gait normal Neck: supple, no lymphaden opathy Peripheral pulses: normal Chest: normal shape and exp ansion
--- OUTSIDE RECORDS SUMMARY | 2024-06-10 09:00 | XMS_ITS ---
Author Organization [facility] Address [address] [place] [phone] Care Team Providers Care Plastic Extrusion Operator Name Role Phone Pierce Perez Primary Care Provider [phone] Allergies No Known Allergies Results Component Value Reference Range Notes P-Microalbumin/Creatinine, R andom Urine Sample Reviewed date:06/19/2024 01:13:13 PM Interpretation:Normal Performing Lab: Notes/Report: Test performed by [facility], [address] , [address], [place] [address] Saúl Pulliam MD, Government Relations Director CLIA: [id number] Albumin/Creatinine Ratio, Urine 25 0-30 ug/m g Microalbumin, Urine, Random 1.9 Creatinine, Urine 77.0 REASON FOR VISIT 2 week f/u Medications Medication SIG (Take, Route, Frequency, Duration) Notes Start Date End Date Status Vitamin D3 25 MCG (1000 UT) 1 tab(s) orally once a day; Duration: 30 day(s) Active Aspirin 81 MG 1 tab orally once daily Active Hydrocortisone 2.5 % 1 application Externally Once a day 01/11/2023 Active Nitroglycerin 0.4 MG 1 tab sublingually every 5 minutes prn 12/15/2021 Active Sildenafil Citrate 20 MG 3 orally as dir ected; Duration: 30 day(s) 09/07/2022 Active OSTEO-BIFLEX 1500 MG 1 P.O. ONCE A DAY Active Diclofenac Sodium 1 % as directed applie d topically 4 times a day Active CoQ10 100 MG 1 cap(s) orally once a day 12/21/2010 Active Efudex 5 % 1 application Externally Twice a week 04/17/2023 Not-Davida Seoxiga 5 MG 1 tablet Orally Once a day; Duration: 90 days Active buPROPion HCl ER (XL) 150 MG 1 tab(s) orally once daily; Duration: 90 days Active LORazepam 0.5 MG 1 tab(s) orally 3 ti mes a day as needed 05/21/2024 Active Losartan Potassium 50 mg 1 tablet Orally twice a day; Duration: 90 days Active Atorvastatin Calcium 40 mg 1 tablet Orally Once a day; Duration: 90 days Active Fluticasone Propionate 50 MCG/ACT 1 spray in each nostril Nasally Once a day 12/15/2023 Active Triamterene-HCTZ 37.5-25 MG 1/2 orally once a day; Duration: 90 days Active Problems Problem Type SNOMED Code ICD Code Onset Dates Problem Status W/U Status Risk Notes Problem Bursitis of right shoulder ([id number] [id number]) Bursitis of right shoulder (M75.51) Active confirmed Vital Signs Weight 192.6 lbs 06/10/2024 Blood pressure systolic 140 mm Hg 06/10/19 25 Blood pressure diastolic 80 mm Hg 025 Heart Rate 69 /min 06/10/2024 Height 73 in 06/10/2024 BMI 25.41 kg/m2 06/10/2024 Encounters Encounter Location Date Provider Diagnosis [facility] [address] [facility] 36 [facility] [address] [place] [phone] 06/10/2024 Pierce Perez Bursitis of right shoulder M75.51 and Essential (primary) hypertension I10 Assessments Encounter Date Diagnosis (ICD Code) Assessment Notes Treatment Notes Treatment Clinical Notes Section Notes 06/10/2024 Bursitis of right shoulder (ICD-10 - M75.51) ice, diclofenac gel 06/10/2024 Essential (primary) hypertension (ICD-10 - I10) Plan Of Treatment Treatment Notes Assessment Notes Bursitis of right shoulder ice, diclofen ac gel Next Appt Details Follow Up: as scheduled, Lizzie son: Provider Name:Pierce Morales er, 10/24/2025 09:30:00 AM, [address] [facility] 36 [facility], [address], [place], [phone], Progress Notes * Alex MARQUEZDOB:0 1945 (79 yo M)Acc No.[id number]:06/10/2024 Patient: Alex NASCIMENTO Provider: Pierce Perez M.D. :1945 A ge:78 Y S ex:Male Date:06/10/2024 Address:[address] [place] [address] [place], [id number] Subjective: * Chief Complaints: * 1 . 2 week f/u. * HPI: S houlder/Upper arm: The pt is here for a follow up on right upper arm/shoulder pain. Pt states he is doing better and is now able to raise his arm above his head without much pain. 78 year old male presents with c/o pain in upper arm. * ROS: D ERMATOLOGY: no R isacc. [...] tablet Orally twice a day , Taking LORazepam 0.5 MG Tablet 1 tab(s) orally 3 times a day as needed , Not-Taking Efudex 5 % Cream 1 application Externally Twice a week , Discontinued Medrol 4 MG Tablet Therapy Pack as directed orally daily , Medication List reviewed and reconciled with the patient * Allergies: N .K.D.A. Objective: * Vitals: W t:192.6, Temp:98.4, BP:140/80, HR:69, Nurse:DIANA, Ht: 73, BMI:25.41. * Examination: G eneral Examination: General Appearance: N AD. H EENT: u nremarkable.?Neck: s upple, no lymphadenopathy. C hest: n ormal shape and expansion. H eart:?RSR. L ungs: c lear to auscultation. N eurologic Exam: I ntact, gait normal. Skin: n ormal, no rash. P eripheral pulses: n ormal . E xtremities: n o leg edema, tender over biceps tendon. Not tender at deltoid. Assessment: * Assessment: 1. B ursitis of right shoulder - M75.51 (Primary) 2 . E ssential (primary) hypertension - I10 Plan: * Treatment: 2. E ssential (primary) hypertension L AB: P-Microalbumin/Creatinine, Random Urine Sample (Collection Date & Time - 06/11/2024 08:00 AM) N ormal Value Reference Range A lbumin/Creatinine Ratio, Urine 25 0-30 - ug /mg * C reatinine, Urine 77.0 - mg/dL * M icroalbumin, Urine, Random 1.9 - mg/dL * Marnie Pinedo 06/19/2024 1:13 :01 PM > , Patient informed of normal results. * Procedure Codes: G 2211 Complex e/m visit add on * Follow Up: a s scheduled * Images: Billing Information: * Visit Code: 84807 Office Visit, Est Pt., Level 3. * Procedure Codes: G2211 Complex e/m visit add on. * Electronic signature of Pierce Perez MD on 05/02/2025 at 08:53 AM EST Sign off status: Pending * Provider: Pierce Perez M.D. Date: 0 06/10/2024 Generated for Gema jerez/Ab/eTharmansmitting on: 1 07/03/2024 08:53 AM EST History and Physical Notes * HPI (History of Present Illness) Category Sub-Category Detail Notes Category Not es Shoulder/Upper arm pain in upper arm Examination Category Sub-Category Detail Notes Category Not es General Examination HEENT: unremarkable Heart: RSR Lungs: clear to auscultatio n Extremities: no leg edema, tender over biceps tendon. Not tender at deltoid General Appearance: NAD Skin: normal, no rash Neurologic Exam: Intact, gait normal Neck: supple, no lymphaden opathy Peripheral pulses: normal Chest: normal shape and exp ansion
--- OUTSIDE RECORDS SUMMARY | 2024-06-24 11:15 | XMS_ITS ---
Author Organization [facility] Address [address] [place] [id number] Care Team Providers Care Soda Tester Name Role Phone Pierce Perez Primary Care Provider Allergies No Known Allergies Results Component Value Reference Range Notes MRI : Shoulder, right, witho ut contrast Reviewed date:07/08/2024 03:40:09 PM Interpretation:Abnormal, see 07/08/2024 f/u appt Performing Lab: Notes/Report: Abnormal, see 07/08/2024 f/u appt Reason For Referral Reason biceps tendonitis Diagnosis 1 Biceps tendinitis of right upper extremity (M75.21) [facility] Referring Provider First Name Pierce Perez Referring Provider Last Name Chris Referring Provider Speciality Family Pra ctice Referred Provider Specialty Physical The rapist General Notes Margarita Diaz 06/25/19 25 8:50:25 AM > faxed to [facility] PT Referral Priority Routine REASON FOR VISIT shoulder pain Medications Medication SIG (Take, Route, Frequency, Duration) Notes Start Date End Date Status Hydrocortisone 2.5 % 1 application Externally Once a day 01/11/2023 Active Nitroglycerin 0.4 MG 1 tab sublingually every 5 minutes prn 12/15/2021 Active Aspirin 81 MG 1 tab orally once daily Active Vitamin D3 25 MCG (1000 UT) 1 tab(s) orally once a day; Duration: 30 day(s) Active CoQ10 100 MG 1 cap(s) orally once a day 12/21/2010 Active Medrol 4 MG as directed orally daily; Duration: 6 days 06/24/2024 Active Efudex 5 % 1 application Externally Twice a week 04/17/2023 Not-Taki ng Acetaminophen-Codeine 300-30 MG 1 tablet Orally four times a day as needed 06/24/2024 Active OSTEO-BIFLEX 1500 MG 1 P.O. ONCE A DAY Active Farxiga 5 MG 1 tablet Orally Once a day; Duration: 90 days Active buPROPion HCl ER (XL) 150 MG 1 tab(s) orally once daily; Duration: 90 days Active Triamterene-HCTZ 37.5-25 MG 1/2 orally once a day; Duration: 90 days Active LORazepam 0.5 MG [...] dir ected; Duration: 30 day(s) 09/07/2022 Active Problems Problem Type SNOMED Code ICD Code Onset Dates Problem Status W/U Status Risk Notes Problem Bicipital tenosynovitis (41234389) Biceps tendinitis of right upper extremity (M75.21) Active confirmed Vital Signs Weight 191.4 lbs 06/24/2024 Blood pressure systolic 140 mm Hg 06/24/19 25 Blood pressure diastolic 80 mm Hg 025 Heart Rate 68 /min 06/24/2024 Height 73 in 06/24/2024 BMI 25.25 kg/m2 06/24/2024 Encounters Encounter Location Date Provider Diagnosis [facility] [address] [place], [place] [phone] 06/24/2024 Pierce Perez Biceps tendinitis of right upper extremity M75.21 Assessments Encounter Date Diagnosis (ICD Code) Assessment Notes Treatment Notes Treatment Clinical Notes Section Notes 06/24/2024 Biceps tendinitis of right upper extremity (ICD-10 - M75.21) Plan Of Treatment Medication Medication Name Sig Start Date Stop Date Notes Medrol 4 MG as directed orally d aily; Duration: 6 days 06/24/2024 Acetaminophen-Codeine 300-30 MG 1 tablet Orally four times a day as needed 06/24/2024 Referrals Referral Date Details 06/24/2024 06/24/2024, biceps t endonitis Next Appt Details Follow Up: 2 Weeks, Reason: Provider Name:Pierce Morales er, 10/24/2025 09:30:00 AM, [address], [address], [place], [id number], Progress Notes * Alex MARQUEZkayeDOB:0 1945 (79 yo M)Acc No.[id number]:06/24/2024 Progress Notes Patient: Alex NASCIMENTO Provider: Pierce Perez M.D. :1945 A ge:78 Y S ex:Male Date:06/24/2024 Address:[address] [place] [address], [id number] Subjective: * Chief Complaints: * 1 . Shoulder pain. * HPI: S houlder/Upper arm: The pt is here today with c/o continued right shoulder pain. Pt states he fell in April and it has been bothering him since that time. Pt states he has been doing neck exercises and ROM exercises and that has helped some. 78 year old male presents with c/o [...] ,Years: , Determination:. * Medications: T aking OSTEO-BIFLEX 1500 MG 1 P.O. ONCE A [...] nostril Nasally Once a day , Taking Atorvastatin Calcium 40 [...] 3 times a day as needed , Taking Triamterene-HCTZ 37.5-25 MG Tablet 1/2 orally once a day , Not-Taking Efudex 5 % Cream 1 application Externally Twice a week , Discontinued Diclofenac Sodium 1 % Gel as directed applied topically 4 times a day , Medication List reviewed and reconciled with the patient * Allergies: N .K.D.A. Objective: * Vitals: W t:191.4, Temp:98.3, BP:140/80, HR:68, Nurse:DIANA, Ht: 73, BMI:25.25. * Examination: G eneral Examination: General Appearance: N AD. H EENT: u nremarkable.?Neck: s upple, no lymphadenopathy. C hest: n ormal shape and expansion. H eart:?RSR. L ungs: c lear to auscultation. N eurologic Exam: I ntact, gait normal. Skin: n ormal, no rash. P eripheral pulses: n ormal . E xtremities: n o leg edema, less tender over deltoid and deltoid insertion than i nitial exam, seems more tender over biceps tendon on exam today. Assessment: * Assessment: 1. B iceps tendinitis of right upper extremity - M75.21 (Primary) Plan: * Treatment: ? Referral To:Physical Therapist ?Reason:biceps tendonitis * Procedure Codes: G 2211 Complex e/m visit add on, 3077F SYST BP = 140 MM HG6 IT, 3079F DIAST BP 80- 89 MM HG * Follow Up: 2 Weeks * Images: Billing Information: * Visit Code: 45853 Office Visit, Est Pt., Level 3. * Procedure Codes: G2211 Complex e/m visit add on. 3077F SYST BP = 140 MM HG6 IT. 3079F DIAST BP 80-89 MM HG. * Electronic signature of Pierce Perez MD on 05/02/2025 at 08:53 AM EST Sign off status: Pending * Provider: Pierce Perez M.D. Date: 0 06/24/2024 Generated for Gema jerez/Ab/eTransmitting on: 07/03/2024 08:53 AM EST History and Physical Notes * HPI (History of Present Illness) Category Sub-Category Detail Notes Category Not es Shoulder/Upper arm shoulder pain Examination Category Sub-Category Detail Notes Category Not es General Examination HEENT: unremarkable Heart: RSR Lungs: clear to auscultatio n Extremities: no leg edema, less t jovan over deltoid and deltoid insertion than initial exam, seems more tender over biceps tendon on exam today General Appearance: NAD Skin: normal, no rash Neurologic Exam: Intact, gait normal Neck: supple, no lymphaden opathy Peripheral pulses: normal Chest: normal shape and exp ansion Consultation Request Notes Referral Date Referring Provider Referred Provider Not es 06/24/2024 Pierce Perez , biceps ten donitis
--- OUTSIDE RECORDS SUMMARY | 2024-07-08 09:00 | XMS_ITS ---
[facility] Address [address] [place] [id number] Care Team Providers Care Home Sales Service Professional Name Role Phone Pierce Perez Primary Care Provider [phone] Allergies No Known Allergies Reason For Referral Reason Refer to Dr. Raman vealzquez Diagnosis 1 Superior glenoid lab rum lesion of right shoulder, subsequent encounter (S43.431D) [facility] Referring Provider First Name Pierce Perez Referring Provider Last Name Chris Referring Provider Speciality Family Pra ctice Referred Provider Specialty Orthopedic S urgery General Notes Margarita Diaz 07/08/19 25 10:05:06 AM > sent referral via [facility] patient referral site to Dr. Tenorio's office Referral Priority Routine REASON FOR VISIT 2 wk f/u Medications Medication SIG (Take, Route, Frequency, Duration) Notes Start Date End Date Status Atorvastatin Calcium 40 mg 1 tablet Orally Once a day; Duration: 90 days Active Efudex 5 % 1 application Externally Twice a week 04/17/2023 Not-Taki ng Triamterene-HCTZ 37.5-25 MG 1/2 orally once a day; Duration: 90 days Active Acetaminophen-Codeine 300-30 MG 1 tablet Orally four times a day as needed 06/24/2024 Active LORazepam 0.5 MG 1 tab(s) orally 3 ti mes a day as needed 05/21/2024 Active Fluticasone Propionate 50 MCG/ACT 1 spray in each nostril Nasally Once a day 12/15/2023 Active buPROPion HCl ER (XL) 150 MG 1 tab(s) orally once daily; Duration: 90 days Active Farxiga 5 MG 1 tablet Orally Once a day; Duration: 90 days Active Losartan Potassium 50 mg 1 tablet Orally twice a day; Duration: 90 days Active Vitamin D3 25 MCG (1000 UT) 1 tab(s) orally once a day; Duration: 30 day(s) Active Aspirin 81 MG 1 tab orally once daily Active Nitroglycerin 0.4 MG 1 tab sublingually every 5 minutes prn 12/15/2021 Active Hydrocortisone 2.5 % 1 application Externally Once a day 01/11/2023 Active Sildenafil Citrate 20 MG 3 orally as dir ected; Duration: 30 day(s) 09/07/2022 Active OSTEO-BIFLEX 1500 MG 1 P.O. ONCE A DAY Active CoQ10 100 MG 1 cap(s) orally once a day 12/21/2010 Active Problems Problem Type SNOMED Code ICD Code Onset Dates Problem Status W/U Status Risk Notes Problem Injury of superior glenoid labrum of shoulder joint (871941498) Superior glenoid labrum lesion of right shoulder, subsequent encounter (S43.431D) Active confirmed Problem Traumatic incomplete tear of right rotator cuff, subsequent encounter (S46.011D) Active confirmed Vital Signs Weight 194.8 lbs 07/08/2024 Blood pressure systolic 140 mm Hg 07/08/19 25 Blood pressure diastolic 80 mm Hg 025 Heart Rate 68 /min 07/08/2024 Height 73 in 07/08/2024 BMI 25.70 kg/m2 07/08/2024 Encounters Encounter Location Date Provider Diagnosis [facility] [address] [facility] [address] [facility] [address] [place] [id number] 07/08/2024 Pierce Perez Superior glenoid labrum lesion of right shoulder, subsequent encounter S43.431D and Traumatic incomplete tear of right rotator cuff, subsequent encounter S46.011D Assessments Encounter Date Diagnosis (ICD Code) Assessment Notes Treatment Notes Treatment Clinical Notes Section Notes 07/08/2024 Superior glenoid labrum lesion of right shoulder, subsequent encounter (ICD-10 - S43.431D) 07/08/2024 Traumatic incomplete tear of right rotator cuff, subsequent encounter (ICD-10 - S46.011D) Plan Of Treatment Referrals Referral Date Details 07/08/2024 07/08/2024, Refer to Dr. Beatty Next Appt Details Follow Up: 2 Months, Reason: Provider Name:Pierce Morales er, 10/24/2025 09:30:00 AM, [address], [address], [place], [id number], Progress Notes * Alex KANGDOB:0 1945 (79 yo M)Acc No.[id number]:07/08/2024 Patient: Alex NASCIMENTO Provider: Pierce Perez M.D. :1945 A ge:78 Y S ex:Male Date:07/08/2024 Address:[address] [place] [address] [place], [id number] Subjective: * Chief Complaints: * 1 . 2 wk f/u. * HPI: S houlder/Upper arm: 78 year old male presents with c/o shoulder pain p t here to f/u on right shoulder pain. See abnormal MRI results. Pt states the pain is better. Pt states he has been doing rehab and also some exercises at home. * ROS: D ERMATOLOGY: no R isacc. [...] nostril Nasally Once a day , Taking buPROPion HCl [...] 1/2 orally once a day , Taking Acetaminophen-Codeine 300-30 MG Tablet 1 tablet Orally four times a day as needed , Taking Atorvastatin Calcium 40 mg Tablet 1 tablet Orally Once a day , Not-Taking Efudex 5 % Cream 1 application Externally Twice a week , Discontinued Medrol 4 MG Tablet Therapy Pack as directed orally daily , Medication List reviewed and reconciled with the patient * Allergies: N .K.D.A. Objective: * Vitals: W t:194.8, Temp:97.8, BP:140/80, HR:68, Nurse:DIANA, Ht: 73, BMI:25.70. * Examination: G eneral Examination: General Appearance: N AD. H EENT: u nremarkable.?Neck: s upple, no lymphadenopathy. C hest: n ormal shape and expansion. H eart:?RSR. L ungs: c lear to auscultation. N eurologic Exam: I ntact, gait normal. Skin: n ormal, no rash. P eripheral pulses: n ormal . E xtremities: R OM seems improved. Assessment: * Assessment: 1. S uperior glenoid labrum lesion of right shoulder, subsequent encounter - S43.431D (Primary)? 2. T raumatic incomplete tear of right rotator cuff, subsequent encounter - S46.011D Plan: * Treatment: * Procedure Codes: G 2211 Complex e/m visit add on, 3077F SYST BP = 140 MM HG6 IT, 3079F DIAST BP 80- 89 MM HG * Follow Up: 2 Months * Images: Billing Information: * Visit Code: 03804 Office Visit, Est Pt., Level 3. * Procedure Codes: G2211 Complex e/m visit add on. 3077F SYST BP = 140 MM HG6 IT. 3079F DIAST BP 80-89 MM HG. * Electronic signature of Pierce Perez MD on 05/02/2025 at 08:52 AM EST Sign off status: Pending * Provider: Pierce Perez M.D. Date: 0 07/08/2024 Generated for Gema jerez/Ab/Karonitting on: 1 07/03/2024 08:52 AM EST History and Physical Notes * HPI (History of Present Illness) Category Sub-Category Detail Notes Category Not es Shoulder/Upper arm shoulder pain pt here to f/ u on right shoulder pain. See abnormal MRI results. Pt states the pain is better. Pt states he has been doing rehab and also some exercises at home Examination Category Sub-Category Detail Notes Category Not es General Examination HEENT: unremarkable Heart: RSR Lungs: clear to auscultatio n Extremities: ROM seems improved General Appearance: NAD Skin: normal, no rash Neurologic Exam: Intact, gait normal Neck: supple, no lymphaden opathy Peripheral pulses: normal Chest: normal shape and exp ansion Consultation Request Notes Referral Date Referring Provider Referred Provider Not es 07/08/2024 Pierce Perez , Refer to Lesa Beatty
--- OUTSIDE RECORDS SUMMARY | 2024-08-19 05:00 | XMS_ITS ---
Author Organization [facility] Address [address] [place] [id number] Care Team Providers Care Security System Technician Name Role Phone Pierce Perez Primary Care Provider Allergies No Known Allergies Results Component Value Reference Range Notes P-Comprehensive Metabolic Pa gia (CMP) Reviewed date:08/21/2024 04:42:33 PM Interpretation:Sod 132, CO2 21, Glu 111, BUN 28, Creat 1.54, eGFR 46 Performing Lab: Notes/Report: Test performed by [facility] [address] [place] [address] , [address], [place] [address] Saúl Pulliam MD, Tableau Administrator CLIA: [id number] Sodium 132 135-145 mmol/L Potassium 4.7 3.5-5.3 mmol/L Chloride 99 97-108 mmol/L CO2 21 22-32 mmol/L Glucose 111 65-99 mg/dL BUN 28 8-23 mg/dL Creatinine 1.54 0.70-1.30 mg/dL Calcium 9.6 8.6-10.4 mg/dL eGFR by Creatinine 46 >59 mL/min/1.73m2 Protein 6.5 6.0-8.3 g/dL Albumin 4.4 3.5-5.3 g/dL Alkaline Phosphatase 100 40-129 IU/L ALT (SGPT) 15 <5-55 IU/L AST (SGOT) 14 <5-46 IU/L Bilirubin, Total 0.4 <0.2-1.2 mg/dL A/G Ratio 2.1 1.1-2.5 REASON FOR VISIT 4 month ckup Medications Medication SIG (Take, Route, Frequency, Duration) Notes Start Date End Date Status CoQ10 100 MG 1 cap(s) orally once a day 12/21/2010 Active OSTEO-BIFLEX 1500 MG 1 P.O. ONCE A DAY Active Efudex 5 % 1 application Externally Twice a week 04/17/2023 Not-Taki ng buPROPion HCl ER (XL) 150 MG 1 tab(s) orally once daily; Duration: 90 days Active Atorvastatin Calcium 40 mg 1 tablet Orally Once a day; Duration: 90 days Active Acetaminophen-Codeine 300-30 MG 1 tablet Orally four times a day as needed 06/24/2024 Active Triamterene-HCTZ 37.5-25 MG 1/2 orally once a day; Duration: 90 days Active LORazepam 0.5 MG 1 tab(s) orally 3 ti mes a day as needed 05/21/2024 Active Losartan Potassium 50 mg 1 tablet Orally twice a day; Duration: 90 days Active Farxiga 5 MG [...] once a day; Duration: 30 day(s) Active Vital Signs Weight 191.4 lbs 08/19/2024 Blood pressure systolic 120 mm Hg 08/20/19 25 Blood pressure diastolic 62 mm Hg 025 Heart Rate 84 /min 08/19/2024 Height 73 in 08/19/2024 BMI 25.25 kg/m2 08/19/2024 Encounters Encounter Location Date Provider Diagnosis [facility] [address] [facility] [address] [place], [place] [id number] 08/19/2024 Pierce Perez Superior glenoid lab rum lesion of right shoulder, subsequent encounter S43.431D ; Essential (primary) hypertension I10 and BMI 25.0-25.9,adult Z68.25 Assessments Encounter Date Diagnosis (ICD Code) Assessment Notes Treatment Notes Treatment Clinical Notes Section Notes 08/19/2024 Superior glenoid labrum lesion of right shoulder, subsequent encounter (ICD-10 - S43.431D) 08/19/2024 Essential (primary) hypertension (ICD-10 - I10) Cont present regimen 08/19/2024 BMI 25.0-25.9,adult (ICD-10 - Z68.25) Plan Of Treatment Treatment Notes Assessment Notes Essential (primary) hypertension Cont pr esent regimen Next Appt Details Follow Up: 4 Months, Reason: Provider Name:Pierce Morales er, 10/24/2025 09:30:00 AM, [address], [address], [place], [place], [id number], Progress Notes * JORGE LUISAlex RUIZ AmariDOB:0 1945 (79 yo M)Acc No.[id number]:08/19/2024 Progress Notes Patient: Alex NASCIMENTO Provider: Pierce Perez M.D. :1945 A ge:79 Y S ex:Male Date:08/19/2024 Address:[address] [place], [place] [address], [id number] Subjective: * Chief Complaints: * 1 . 4 month ckup. * HPI: S houlder/Upper arm: The pt is here for a follow up on right shoulder pain. Pt states he did see the orthopedic surgeon and he did not think he needed any surgery at this time. Does have a SLAP tear, but felt surgery was not necessary. Pt states the pain has resolved and his ROM is much better. * ROS: D ERMATOLOGY: no R isacc. [...] nostril Nasally Once a day , Taking Farxiga 5 MG Tablet 1 [...] Hour 1 tab(s) orally once daily , Not-Taking Efudex 5 % Cream 1 application Externally Twice a week , Medication List reviewed and reconciled with the patient * Allergies: N .K.D.A. Objective: * Vitals: W t:191.4, Temp:98.3, BP:120/62, HR:84, Nurse:DIANA, Ht: 73, BMI:25.25. * Examination: G eneral Examination: General Appearance: N AD. H EENT: u nremarkable.?Neck: s upple, no lymphadenopathy. C hest: n ormal shape and expansion. H eart:?RSR. L ungs: c lear to auscultation. N eurologic Exam: I ntact, gait normal. Skin: n ormal, no rash. P eripheral pulses: n ormal . E xtremities: R OM much improved. Assessment: * Assessment: 1. S uperior glenoid labrum lesion of right shoulder, subsequent encounter - S43.431D (Primary)? 2. E ssential (primary) hypertension - I10 3 . B AZ 25.0-25.9,adult - Z68.25 Plan: * Treatment: Value Reference Range A /G Ratio 2.1 1.1-2.5 - * A lbumin 4.4 3.5-5.3 - g/dL * A lkaline Phosphatase 100 40-129 - IU/L * A LT (SGPT) 15 <5-55 - IU/L * A ST (SGOT) 14 <5-46 - IU/L * B ilirubin, Total 0.4 <0.2-1.2 - mg/dL * B UN 28 H 8-23 - mg/dL * C alcium 9.6 8.6-10.4 - mg/dL * C hloride 99 97-108 - mmol/L * C O2 21 L 22-32 - mmol/L * C reatinine 1.54 H 0.70-1.30 - mg/dL * G lucose 111 H 65-99 - mg/dL * P otassium 4.7 3.5-5.3 - mmol/L * S odium 132 L 135-145 - mmol/L * P rotein 6.5 6.0-8.3 - g/dL * e GFR by Creatinine 46 L >59 - mL/min/1.73m2 * Mary West 08/21/2024 04:4 2:23 PM > see phone encounter Notes: Cont present regimen?? * Procedure Codes: G 2211 Complex e/m visit add on, 3074F SYST BP LT 130 MM HG, 3078F DIAST BP < 80 MM HG * Follow Up: 4 Months * Images: Billing Information: * Visit Code: 52702 Office Visit, Est Pt., Level 3. * Procedure Codes: G2211 Complex e/m visit add on. 3074F SYST BP LT 130 MM HG. 3078F DIAST BP < 80 MM HG. * Electronic signature of Pierce Perez MD on 05/02/2025 at 08:54 AM EST Sign off status: Pending * Provider: Pierce Perez M.D. Date: 0 08/19/2024 Generated for Gema jerez/Ab/eTransmitting on: 1 07/03/2024 08:54 AM EST History and Physical Notes * Examination Category Sub-Category Detail Notes Category Not es General Examination HEENT: unremarkable Heart: RSR Lungs: clear to auscultatio n Extremities: ROM much improved General Appearance: NAD Skin: normal, no rash Neurologic Exam: Intact, gait normal Neck: supple, no lymphaden opathy Peripheral pulses: normal Chest: normal shape and exp ansion
--- OUTSIDE RECORDS SUMMARY | 2024-10-30 05:45 | XMS_ITS ---
Author Organization [facility] Address [address] [facility] [address] [place] [id number] Care Team Providers Care Psych Nurse Name Role Phone Pierce Perez Primary Care Provider Lcuy Erickson [phone] Allergies No Known Allergies REASON FOR VISIT Ear Feels Full of Fluid Medications Medication SIG (Take, Route, Frequency, Duration) Notes Start Date End Date Status Losartan Potassium 50 mg 1 tablet Orally twice a day; Duration: 90 days Active Efudex 5 % 1 application Externally Twice a week 04/17/2023 Not-Taki ng buPROPion HCl ER (XL) 150 MG 1 tab(s) orally once daily; Duration: 90 days Active Farxiga 5 MG 1 tablet Orally Once a day; Duration: 90 days Active metOLazone 2.5 MG 1 tablet Orally once daily; Duration: 30 days 09/05/2024 Active Fluticasone Propionate 50 MCG/ACT 1 spray in each nostril Nasally Once a day 12/15/2023 Active LORazepam 0.5 MG 1 tab(s) orally 3 ti mes a day as needed 05/21/2024 Active Sildenafil Citrate 20 MG 3 orally as dir ected; Duration: 30 day(s) 09/07/2022 Active Atorvastatin Calcium 40 mg 1 tablet Orally Once a day; Duration: 90 days Active Acetaminophen-Codeine 300-30 MG 1 tablet Orally four times a day as needed 06/24/2024 Active Aspirin 81 MG 1 tab orally once daily Active Nitroglycerin 0.4 MG 1 tab sublingually every 5 minutes prn 12/15/2021 Active Hydrocortisone 2.5 % 1 application Externally Once a day 01/11/2023 Active Vitamin D3 25 MCG (1000 UT) 1 tab(s) orally once a day; Duration: 30 day(s) Active Loratadine 10 MG 1 tablet Orally Once a day; Duration: 30 days 10/30/2024 Active OSTEO-BIFLEX 1500 MG 1 P.O. ONCE A DAY Active CoQ10 100 MG 1 cap(s) orally once a day 12/21/2010 Active Vital Signs Weight 190.6 lbs 10/30/2024 Blood pressure systolic 120 mm Hg 10/31/19 25 Blood pressure diastolic 80 mm Hg 025 Heart Rate 86 /min 10/30/2024 Height 73 in 10/30/2024 BMI 25.14 kg/m2 10/30/2024 Encounters Encounter Location Date Provider Diagnosis [facility] [address] [facility] [address] [facility] [address] [place] [phone] 10/30/2024 Lucy Erickson Non-recurrent acute serous otitis media of left ear H65.02 and BMI 25.0-25.9,adult Z68.25 Assessments Encounter Date Diagnosis (ICD Code) Assessment Notes Treatment Notes Treatment Clinical Notes Section Notes 10/30/2024 Non-recurrent acute serous otitis media of left ear (ICD-10 - H65.02) Has flonase at home he will use daily. 10/30/2024 BMI 25.0-25.9,adult (ICD-10 - Z68.25) Plan Of Treatment Medication Medication Name Sig Start Date Stop Date Notes Loratadine 10 MG 1 tablet Orally Once a day; Duration: 30 days 10/30/2024 Treatment Notes Assessment Notes Non-recurrent acute serous o titis media of left ear Has flonase at home he will use daily. Next Appt Details Follow Up: prn, Reason: Provider Name:Pierce Morales , 10/24/2025 09:30:00 AM, [address] [facility] [address] [facility], [address], [place], [phone], Progress Notes * Alex MARQUEZB:0 1945 (79 yo M)Acc No.[id number]:10/30/2024 Progress Notes Patient: Alex NASCMIENTO Provider: RAH Mobley :1945 A ge:79 Y S ex:Male Date:10/30/2024 Address:[facility] [place], [id number] Pcp:Pierce Perez Subjective: * Chief Complaints: * 1 . Ear Feels Full of Fluid. * HPI: E NT/respiratory: ear pain P t sts his ears feels full of fluid. Pt sts he wears his hearing aids and sts he feels as if there is water in his left ear all of time and sts he can never get anything to come out. Pt sts he feels as if wearing the hearing the aids they make the inside of his ears sweat. * ROS: D ERMATOLOGY: no R isacc. [...] nostril Nasally Once a day , Taking LORazepam 0.5 MG Tablet 1 tab(s) orally 3 times a day as needed , Taking Acetaminophen- Codeine 300-30 MG Tablet 1 tablet Orally four times a day as needed , Taking Atorvastatin Calcium 40 mg Tablet 1 tablet Orally Once a day , Taking buPROPion HCl ER (XL) 150 MG Tablet Extended Release 24 Hour 1 tab(s) orally once daily , Taking Farxiga 5 MG Tablet 1 tablet Orally Once a day , Taking metOLazone 2.5 MG Tablet 1 tablet Orally once daily , Taking Losartan Potassium 50 mg Tablet 1 tablet Orally twice a day , Not-Taking Efudex 5 % Cream 1 application Externally Twice a week , Medication List reviewed and reconciled with the patient * Allergies: N .K.D.A. Objective: * Vitals: W t: 190.6, Temp: 98.4, BP: 120/80, HR: 86, Nurse: clover, Ht: 73, BMI:25.14. * Examination: G eneral Examination: General Appearance: N AD. H EENT: l eft TM with effusion, no erythema, right TM normal. O ral cavity: n o lesions, mucosa moist and WNL, no erythema. N teto: s upple, no lymphadenopathy. C hest: n ormal shape and expansion. Heart: R SR. L ungs: c lear to auscultation. Assessment: * Assessment: 1. N on-recurrent acute serous otitis media of left ear - H65.02 (Primary) 2 .?BMI 25.0-25.9,adult - Z68.25 Plan: * Treatment: * Procedure Codes: G 2211 Complex e/m visit add on, 1036F TOBACCO NON-USER, G8420 BMI<30 AND >=22 CALC & DOCU, G8783 BP SCR PRFRM RCMDD DEFIND SCR INTVL, G8752 MOST RECENT SYSTOLIC BP < 140MM HG, G8754 MOST RECENT DIASTOLIC BP < 90MM HG * Follow Up: p rn * Images: Billing Information: * Visit Code: 71203 Office Visit, Est Pt., Level 3. * Procedure Codes: G2211 Complex e/m visit add on. 1036F TOBACCO NON-USER. G8420 BMI<30 AND >=22 CALC & DOCU. G8783 BP SCR PRFRM RCMDD DEFIND SCR INTVL. G8752 MOST RECENT SYSTOLIC BP < 140MM HG. G8754 MOST RECENT DIASTOLIC BP < 90MM HG. * Electronic signature of RAH Schneider on 05/02/2025 at 08:52 AM EST Sign off status: Pending * Provider: RAH Mobley Date: 0 10/30/2024 Generated for Gema jerez/Ab/eTransmitting on: 1 07/03/2024 08:52 AM EST History and Physical Notes * HPI (History of Present Illness) Category Sub-Category Detail Notes Category Not es ENT/respiratory ear pain Pt sts his ears feels full of fluid. Pt sts he wears his hearing aids and sts he feels as if there is water in his left ear all of time and sts he can never get anything to come out. Pt sts he feels as if wearing the hearing the aids they make the inside of his ears sweat Examination Category Sub-Category Detail Notes Category Not es General Examination HEENT: left TM with effusion, no erythema, right TM normal Heart: RSR Lungs: clear to auscultatio n General Appearance: NAD Neck: supple, no lymphaden opathy Oral cavity: no lesions, mucosa m oist and WNL, no erythema Chest: normal shape and exp ansion
--- OUTSIDE RECORDS SUMMARY | 2024-11-27 05:15 | XMS_ITS ---
Author Organization [facility] Address [address] [facility] [address] [place] [id number] Care Team Providers Care Street Commissioner Name Role Phone Pierce Perez Primary Care Provider [phone] Lucy Erickson [phone] Allergies No Known Allergies REASON FOR VISIT shoulder pain and toe Medications Medication SIG (Take, Route, Frequency, Duration) Notes Start Date End Date Status Cyclobenzaprine HCl 5 MG 1 tablet Orally 3 times a day, prn 11/27/2024 Active LORazepam 0.5 MG 1 tab(s) orally 3 times a day as needed; Duration: 30 days 11/21/2024 Active Efudex 5 % 1 application Externally Twice a week 04/17/2023 Not-Taking Cephalexin 500 MG 1 capsule Orally twi ce a day; Duration: 10 days 11/27/2024 Active Medrol 4 MG as directed Orally 11/27/2024 Active buPROPion HCl ER (XL) 150 MG 1 tab(s) orally once daily; Duration: 90 days Active Farxiga 5 MG 1 tablet Orally Once a day; Duration: 90 days Active metOLazone 2.5 MG 1 tablet Orally once daily; Duration: 30 days 09/05/2024 Active Losartan Potassium 50 mg 1 tablet Orally twice a day; Duration: 90 days Active Loratadine 10 MG 1 tablet Orally Once a day; Duration: 30 days 10/30/2024 Active Hydrocortisone 2.5 % 1 application Externally Once a day 01/11/2023 Active Sildenafil Citrate 20 MG 3 orally as dir ected; Duration: 30 day(s) 09/07/2022 Active Fluticasone Propionate 50 MCG/ACT 1 spray in each nostril Nasally Once a day 12/15/2023 Active Acetaminophen-Codeine 300-30 MG 1 tablet Orally four times a day as needed 06/24/2024 Active Atorvastatin Calcium 40 mg 1 tablet Oral ly Once a day; Duration: 90 days Active OSTEO-BIFLEX 1500 MG 1 P.O. ONCE A DAY Active CoQ10 100 MG 1 cap(s) orally once a day 12/21/2010 Active Vitamin D3 25 MCG (1000 UT) 1 tab(s) orally once a day; Duration: 30 day(s) Active Aspirin 81 MG 1 tab orally once daily Active Nitroglycerin 0.4 MG 1 tab sublingually every 5 minutes prn 12/15/2021 Active Vital Signs Weight 193 lbs 11/27/2024 Blood pressure systolic 105 mm Hg 11/28/19 25 Blood pressure diastolic 60 mm Hg 025 Heart Rate 65 /min 11/27/2024 Height 73 in 11/27/2024 BMI 25.46 kg/m2 11/27/2024 Encounters Encounter Location Date Provider Diagnosis [facility] [address] [facility] [address] [place], [place] [id number] 11/27/2024 Lucy Erickson Spasm of right trapezius muscle M62.830 ; Open wound of toe, initial encounter S91.109A and BMI 25.0-25.9,adult Z68.25 Assessments Encounter Date Diagnosis (ICD Code) Assessment Notes Treatment Notes Treatment Clinical Notes Section Notes 11/27/2024 Spasm of right trapezius muscle (ICD-10 - M62.830) 11/27/2024 Open wound of toe, initial encounter (ICD-10 - S91.109A) 11/27/2024 BMI 25.0-25.9,adult (ICD-10 - Z68.25) Plan Of Treatment Medication Medication Name Sig Start Date Stop Date Notes Cyclobenzaprine HCl 5 MG 1 tablet Orally 3 times a day, prn 11/27/2024 Cephalexin 500 MG 1 capsule Orally twi ce a day; Duration: 10 days 11/27/2024 Medrol 4 MG as directed Orally 11/27/2024 Next Appt Details Follow Up: prn, Reason: Provider Name:Pierce Morales er, 10/24/2025 09:30:00 AM, [address], [address], [place], [id number], Progress Notes * Alex MARQUEZDOB:0 1945 (79 yo M)Acc No.[id number]:11/27/2024 Progress Notes Patient: Alex NASCIMENTO Provider: RAH Mobley :1945 A ge:79 Y S ex:Male Date:11/27/2024 Address:[address] [place], [place] [address], [id number] Pcp:Pierce Perez Subjective: * Chief Complaints: * 1 . Shoulder pain and toe. * HPI: S houlder/Upper arm: 79 year old male presents with c/o shoulder pain P t states having shoulder pain. He had a previous SLAP tear and was trying to get a mower out of grass where it got stuck. He now has worse pain in the right shoulder and neck.. A nkle/Foot: c/o Pain P t complains of off and pain in toe on rt foot states for a few weeks. * ROS: D ERMATOLOGY: no R isacc. [...] nostril Nasally Once a day , Taking Acetaminophen-Codeine 300-30 MG [...] tablet Orally twice a day , Taking Loratadine 10 MG Tablet 1 tablet Orally Once a day , Taking LORazepam 0.5 MG Tablet 1 tab(s) orally 3 times a day as needed , Not- Taking Efudex 5 % Cream 1 application Externally Twice a week , Medication List reviewed and reconciled with the patient * Allergies: N .K.D.A. Objective: * Vitals: W t: 193, Temp: 98.6, BP: 105/60, HR: 65, Nurse: pe, Ht: 73, BMI:25.46. * Examination: G eneral Examination: General Appearance: N AD. C hest: n ormal shape and expansion. H eart: R SR. L ungs: c lear to auscultation. S kin: r ight 2nd digit with an open wound on the top of the toe with surrounding erythema, no drainage. ? N teto: Vertebral spine tenderness: a bsent. P araspinal muscle spasm: a bsent bilaterally. R abundio of motion of neck: l imited rotations. T rapezius tenderness: t tp along the right trapezius muscle with spasm present. S houlder joint: decreased ROM. S ensations: n ormal bilaterally. M otor strength: n ormal. ? S houlder / Upper arm: Shoulder: r ight. I nspection: n o swelling or redness. P alpation: s ome posterior tenderness, no t enderness over AC joint. R abundio of motion: r estricted rotations and abduction. Assessment: * Assessment: 1. S pasm of right trapezius muscle - M62.830 (Primary) 2 . O pen wound of toe, initial encounter - S91.109A S pecify :right 2nd digit 3 . B CA 25.0-25.9,adult - Z68.25 Plan: * Treatment: 2. O pen wound of toe, initial encounter Start Cephalexin Capsule, 500 MG, 1 capsule, Orally, twice a day, 10 days, 20 Capsule, Refills 0.? * Procedure Codes: G 2211 Complex e/m visit add on, 1036F TOBACCO NON-USER, G8420 BMI<30 AND >=22 CALC & DOCU, G8783 BP SCR PRFRM RCMDD DEFIND SCR INTVL, G8752 MOST RECENT SYSTOLIC BP < 140MM HG, G8754 MOST RECENT DIASTOLIC BP < 90MM HG * Follow Up: p rn * Images: Billing Information: * Visit Code: 10407 Office Visit, Est Pt., Level 4. * Procedure Codes: G2211 Complex e/m visit [...] Pending * Provider: RAH Mobley Date: 0 11/27/2024 Generated for Gema jerez/Ab/Speedy on: 1 07/03/2024 08:52 AM EST History and Physical Notes * HPI (History of Present Illness) Category Sub-Category Detail Notes Category Not es Ankle/Foot Pain Pt complains of off and pain in toe on rt foot states for a few weeks Shoulder/Upper arm shoulder pain Pt states hav ing shoulder pain. He had a previous SLAP tear and was trying to get a mower out of grass where it got stuck. He now has worse pain in the right shoulder and neck. Examination Category Sub-Category Detail Notes Category Not es General Examination Heart: RSR Lungs: clear to auscultatio n General Appearance: NAD Skin: right 2nd digit with an open wound on the top of the toe with surrounding erythema, no drainage Chest: normal shape and exp ansion Neck Vertebral spine tenderness: absent Paraspinal muscle spasm: absent bilatera lly Range of motion of neck: limited rotatio ns Trapezius tenderness: ttp along the righ t trapezius muscle with spasm present Shoulder joint: decreased ROM Sensations: normal bilaterally Motor strength: normal Shoulder / Upper arm Range of motion: restricted rotat ions and abduction Shoulder: right Inspection: no swelling or redne ss Palpation: some posterior tende rness, no tenderness over AC joint
--- OUTSIDE RECORDS SUMMARY | 2024-12-23 05:00 | XMS_ITS ---
Author Organization [facility] Address [address] [place] [id number] Care Team Providers Care Tierce Filler Name Role Phone Pierce Perez Primary Care Provider [phone] Allergies No Known Allergies Results Component Value Reference Range Notes P-Basic Metabolic Panel (BMP ) Reviewed date:12/25/2024 01:18:41 PM Interpretation:Na 131, cl 93, gfr 56 Performing Lab: Notes/Report: Test performed by [facility], [address] , [address], [place] [address] Saúl Pulliam MD, It Technician CLIA: [id number] Sodium 131 135-145 mmol/L Potassium 4.8 3.5-5.3 mmol/L Chloride 93 97-108 mmol/L CO2 27 20-32 mmol/L Glucose 80 65-99 mg/dL BUN 21 8-23 mg/dL Creatinine 1.30 0.70-1.30 mg/dL Calcium 9.2 8.6-10.4 mg/dL eGFR by Creatinine 56 >59 mL/min/1.73m2 REASON FOR VISIT 4 months Medications Medication SIG (Take, Route, Frequency, Duration) Notes Start Date End Date Status OSTEO-BIFLEX 1500 MG 1 P.O. ONCE A DAY Active Vitamin D3 25 MCG (1000 UT) 1 tab(s) ora lly once a day; Duration: 30 day(s) Active Aspirin 81 MG 1 tab orally once daily Active CoQ10 100 MG 1 cap(s) orally once a day 12/21/2010 Active Nitroglycerin 0.4 MG 1 tab sublingually every 5 minutes prn 12/15/2021 Active Farxiga 5 MG 1 tablet Orally Once a day; Duration: 90 days Active Loratadine 10 MG 1 tablet Orally Once a day; Duration: 30 days 10/30/2024 Active LORazepam 0.5 MG 1 tab(s) orally 3 ti mes a day as needed; Duration: 30 days 11/21/2024 Active metOLazone 2.5 MG 1 tablet Orally once daily; Duration: 30 days 09/05/2024 Active Losartan Potassium 50 mg 1 tablet Orally twice a day; Duration: 90 days Active buPROPion HCl ER (XL) 150 MG 1 tab(s) orally once daily; Duration: 90 days Active Acetaminophen-Codeine 300-30 MG 1 tablet Orally four times a day as needed 06/24/2024 Active Atorvastatin Calcium 40 mg 1 tablet Oral ly Once a day; Duration: 90 days Active Sildenafil Citrate 20 MG 3 orally as dir ected; Duration: 30 day(s) 09/07/2022 Active Fluticasone Propionate 50 MCG/ACT 1 spray in each nostril Nasally Once a day 12/15/2023 Active Hydrocortisone 2.5 % 1 application Exter lola Once a day 01/11/2023 Active Problems Problem Type SNOMED Code ICD Code Onset Dates Problem Status W/U Status Risk Notes Problem Acquired hammer toe of right foot ([id number]) Hammertoe of right foot (M20.41) Active confirmed Vital Signs Weight 191.4 lbs 12/23/2024 Blood pressure systolic 112 mm Hg 12/24/19 25 Blood pressure diastolic 68 mm Hg 025 Heart Rate 75 /min 12/23/2024 Height 73 in 12/23/2024 BMI 25.25 kg/m2 12/23/2024 Encounters Encounter Location Date Provider Diagnosis [facility] [address] [place] [id number] 12/23/2024 Pierce Perez Essential hypertensi on I10 ; Renal insufficiency N28.9 ; Arteriosclerotic cardiovascular disease I25.10 ; Stented coronary artery Z95.5 ; Superior glenoid labrum lesion of right shoulder, subsequent encounter S43.431D ; Hammertoe of right foot M20.41 ; Bunion of right foot M21.611 ; Bunion of left foot M21.612 ; Actinic keratosis L57.0 and BMI 25.0-25.9,adult Z68.25 Assessments Encounter Date Diagnosis (ICD Code) Assessment Notes Treatment Notes Treatment Clinical Notes Section Notes 12/23/2024 Essential hypertension (ICD-10 - I10) 12/23/2024 Renal insufficiency (ICD-10 - N28.9) 12/23/2024 Arteriosclerotic cardiovascular disease (ICD-10 - I25.10) 12/23/2024 Stented coronary artery (ICD-10 - Z95.5) 12/23/2024 Superior glenoid labrum lesion of right shoulder, subsequent encounter (ICD-10 - S43.431D) 12/23/2024 Hammertoe of right foot (ICD-10 - M20.41) 12/23/2024 Bunion of right foot (ICD-10 - M21.611) 12/23/2024 Bunion of left foot (ICD-10 - M21.612) 12/23/2024 Actinic keratosis (ICD-10 - L57.0) 12/23/2024 BMI 25.0-25.9,adult (ICD-10 - Z68.25) Plan Of Treatment Next Appt Details Follow Up: 4 Months, Reason: Provider Name:Pierce Morales , 10/24/2025 09:30:00 AM, [address] [facility] [address] [facility], [address] , [place], [place], [phone], Procedure Notes * Category Sub-Category Detail Notes Cryotherapy Actinic Keratosis Reason for treatme nt: Right religion with actinic lesion of 8mm area Number of lesions treated: Cryo of right religion lesion and also a salena keratosis superior to the actinic lesion Method: Kristine LL-100 used to freeze and refreeze the lesions Post Op instruction: Wash with vinegar w ater twice a day, Apply Vaseline twice a day Progress Notes * Alex MARQUEZDOB:0 1945 (79 yo M)Acc No.[id number]:12/23/2024 Progress Notes Patient: Ge NASCIMENTOeugenie Fitzpatrick Provider: Pierce Perez M.D. :1945 A ge:79 Y S ex:Male Date:12/23/2024 Address:[place], [id number] Subjective: * Chief Complaints: * 1 . 4 months. * HPI: H PI: 79 year old male presents with c/o Patient is here today for?Pt is here today for a 4 month check up. Pt sts he is doing well and has no concerns at this time. Pt is not fasting. D ermatology: c/o mole P t sts he has a spot on the rt side of his face that he would like looked at today as well. A nkle/Foot: saw Podiatry. Surgery is planned in the winter for hammertoe and bunion. S houlder/Upper arm: Shoulder is fine . * ROS: D ERMATOLOGY: no R isacc. [...] 3 times a day as needed , Medication List reviewed and reconciled with the patient * Allergies: N .K.D.A. Objective: * Vitals: W t: 191.4, Temp: 98.7, BP: 112/68, HR: 75, Nurse: [facility], Ht: 73, BMI:25.25. * Examination: G eneral Examination: General Appearance: N AD. H EENT: u nremarkable.?Neck: s upple, no lymphadenopathy. C hest: n ormal shape and expansion. H eart:?RSR. L ungs: c lear to auscultation. N eurologic Exam: I ntact, gait normal. Skin: 8 mm area of scaling and actinic change. A salena K lesion is superior to the AK.?Peripheral pulses: n ormal . E xtremities: R ight foot with hammer toe 2nd digit and bilateral bunions.. Assessment: * Assessment: 1. E ssential hypertension - I10 (Primary) 2 . R enal insufficiency - N28.9? 3. A rteriosclerotic cardiovascular disease - I25.10 4 . S tented coronary artery - Z95.5 5 . S uperior glenoid labrum lesion of right shoulder, subsequent encounter - S43.219D 6 . H ammertoe of right foot - M20.41? 7. B union of right foot - M21.611 8 . B union of left foot - M21.612 9 . A ctinic keratosis - L57.0 1 0. B LA 25.0-25.9,adult - Z68.25 Plan: * Treatment: Value Reference Range B UN 21 8-23 - mg/dL * C alcium 9.2 8.6-10.4 - mg/dL * C hloride 93 L 97-108 - mmol/L * C O2 27 20-32 - mmol/L * C reatinine 1.30 0.70-1.30 - mg/dL * G lucose 80 65-99 - mg/dL * P otassium 4.8 3.5-5.3 - mmol/L * S odium 131 L 135-145 - mmol/L * e GFR by Creatinine 56 L >59 - mL/min/1.73m2 * Barbara Basilio 12/25/2024 0 1:18:34 PM EDT > See phone encounter * Procedures: C ryotherapy Actinic Keratosis: Reason for treatment: R ight religion with actinic lesion of 8mm area. N umber of lesions treated: C reyna of right religion lesion and also a salena keratosis superior to the actinic lesion. M ethod: W allach LL-100 used to freeze and refreeze the lesions. P ost Op instruction: W isacc with vinegar water twice a day, Apply Vaseline twice a day. * Procedure Codes: 1 7000 DESTRUCTION BENIGN LESION, CRYOSURGERY,ELECTROSURGERY FIRST LESION, 26501 DESTRUCTION BENIGN LESION,CRYO, ELECTRO, 2-14 LESIONS, G2211 Complex e/m visit add on, 1036F TOBACCO NON-USER, G8950 PREHTN/HTN BP DOC INDCD F/U DOC, G8752 MOST RECENT SYSTOLIC BP < 140MM HG, G8754 MOST RECENT DIASTOLIC BP < 90MM HG, G8420 BMI<30 AND >=22 CALC & DOCU * Follow Up: 4 Months * Images: Billing Information: * Visit Code: 70189 Office Visit, Est Pt., Level 4. Modifiers: 25 * Procedure Codes: 56850 DESTRUCTION BENIGN LESION, CRYOSURGERY,ELECTROSURGERY FIRST LESION. 38559 DESTRUCTION BENIGN LESION,CRYO, ELECTRO, 2-14 LESIONS. G2211 Complex e/m visit add on. 1036F TOBACCO NON-USER. G8950 PREHTN/HTN BP DOC INDCD F/U DOC. G8752 MOST RECENT SYSTOLIC BP < 140MM HG. G8754 MOST RECENT DIASTOLIC BP < 90MM HG. G8420 BMI<30 AND >=22 CALC & DOCU. * Electronic signature of Pierce Perez MD on 05/02/2025 at 08:52 AM EST Sign off status: Pending * Provider: Pierce Perez M.D. Date: 0 12/23/2024 Generated for Gema jerez/Ab/eTransmitting on: 1 07/03/2024 08:52 AM EST History and Physical Notes * HPI (History of Present Illness) Category Sub-Category Detail Notes Category Not es Dermatology mole Pt sts he has a spot on the rt side of his face that he would like looked at today as well HPI Patient is here today for Pt is here today for a 4 month check up. Pt sts he is doing well and has no concerns at this time. Pt is not fasting Examination Category Sub-Category Detail Notes Category Not es General Examination HEENT: unremarkable Heart: RSR Lungs: clear to auscultatio n Extremities: Right foot with samantha er toe 2nd digit and bilateral bunions. General Appearance: NAD Skin: 8mm area of scaling and actinic change. A salena K lesion is superior to the AK Neurologic Exam: Intact, gait normal Neck: supple, no lymphaden opathy Peripheral pulses: normal Chest: normal shape and exp ansion
--- OUTSIDE RECORDS SUMMARY | 2025-01-23 07:05 | XMS_ITS ---
[facility] Organization [facility] Address [address] [place] [id number] Care Team Providers Care Track Moving Machine Operator Name Role Phone Pierce Perez Primary Care Provider REASON FOR VISIT flu shot Medications Medication SIG (Take, Route, Frequency, Duration) Notes Start Date End Date Status metOLazone 2.5 mg TAKE 1 TABLET BY ED TH ONCE A DAY; Duration: 30 Active Nitroglycerin 0.4 mg DISSOLVE 1 TABLET U NDER THE TONGUE EVERY 5 MINUTES NEEDED. MAX OF 3 DOSES IN 15 MINUTES, IF NO RELIEF CALL 911 OR GO TO ER; Duration: 10 Active Atorvastatin Calcium 40 mg 1 tablet Oral ly Once a day; Duration: 90 days Active LORazepam 0.5 MG 1 tab(s) orally 3 ti mes a day as needed; Duration: 30 days 11/21/2024 Active Loratadine 10 MG 1 tablet Orally Once a day; Duration: 30 days 10/30/2024 Active Farxiga 5 MG 1 tablet Orally Once a day; Duration: 90 days Active buPROPion HCl ER (XL) 150 MG 1 tab(s) or ally once daily; Duration: 90 days Active Acetaminophen-Codeine 300-30 MG 1 tablet Orally four times a day as needed 06/24/2024 Active Fluticasone Propionate 50 MCG/ACT 1 spray in each nostril Nasally Once a day 12/15/2023 Active Losartan Potassium 50 mg 1 tablet Orally twice a day; Duration: 90 days Active Sildenafil Citrate 20 MG 3 orally as dir ected; Duration: 30 day(s) 09/07/2022 Active Hydrocortisone 2.5 % 1 application Exter lola Once a day 01/11/2023 Active Aspirin 81 MG 1 tab orally once daily Active Vitamin D3 25 MCG (1000 UT) 1 tab(s) ora lly once a day; Duration: 30 day(s) Active CoQ10 100 MG 1 cap(s) orally once a day 12/21/2010 Active OSTEO-BIFLEX 1500 MG 1 P.O. ONCE A DAY Active Immunizations Vaccine Route Administration Date Status Comme nts Fluzone High Dose (65yr and older) IM Intramuscular 01/23/2025 Administered Encounters Encounter Location Date Provider Diagnosis [facility] [address] [place] [phone] 01/23/2025 Pierce Perez Encounter for immunization Z23 Assessments Encounter Date Diagnosis (ICD Code) Assessment Notes Treatment Notes Treatment Clinical Notes Section Notes 01/23/2025 Encounter for immunization (ICD-10 - Z23) Plan Of Treatment Next Appt Details Provider Name:Pierce Morales er, 10/24/2025 09:30:00 AM, [address], [address], [place], [id number], Progress Notes * Alex MARQUEZDOB:0 1945 (79 yo M)Acc No.[id number]:01/23/2025 Patient: Tone MARESAlex Provider: Pierce Perez M.D. :1945 A ge:79 Y S ex:Male Date:01/23/2025 Address:[address] [place], [place] [id number] Subjective: * Chief Complaints: * 1 . Flu shot. * Medical History: * Medications: T aking OSTEO-BIFLEX 1500 MG 1 P.O. ONCE A DAY , Taking CoQ10 100 MG Capsule 1 cap(s) orally once a day , Taking Vitamin D3 25 MCG (1000 UT) Tablet 1 tab(s) orally once a day , Taking Aspirin 81 MG Tablet Delayed Release 1 tab orally once daily , Taking Hydrocortisone 2.5 % Ointment 1 application Externally Once a day , Taking Sildenafil Citrate 20 MG Tablet 3 orally as directed , Taking Fluticasone Propionate 50 MCG/ACT Suspension 1 spray in each nostril Nasally Once a day , Taking Acetaminophen- Codeine 300-30 MG Tablet 1 tablet Orally four times a day as needed , Taking buPROPion HCl ER (XL) 150 [...] tablet Orally Once a day , Taking Nitroglycerin 0.4 mg Tablet Sublingual DISSOLVE 1 TABLET UNDER THE TONGUE EVERY 5 MINUTES NEEDED. MAX OF 3 DOSES IN 15 MINUTES, IF NO RELIEF CALL 911 OR GO TO ER , Taking metOLazone 2.5 mg Tablet TAKE 1 TABLET BY MOUTH ONCE A DAY , Medication List reviewed and reconciled with the patient Objective: * Vitals: Assessment: * Assessment: 1. E ncounter for immunization - Z23 (Primary) Plan: * Treatment: * Immunizations: Fluzone High Dose (65yr and older) : 0.5 mL (Route: Intramuscular) given by Carrol Almanza on Left Deltoid (Encounter for immunization) * Procedure Codes: 9 0662 FLU VACC PRSV FREE INC ANTIG, G0008 ADMN FLU VAC NO FEE SCHED SAME DAY * Images: Billing Information: * Visit Code: * Procedure Codes: 88187 FLU VACC PRSV FREE INC ANTIG. G0008 ADMN FLU VAC NO FEE SCHED SAME DAY. * Electronic signature of Pierce Perez MD on 05/02/2025 at 08:53 AM EST Sign off status: Pending * Provider: Pierce Perez M.D. Date: 0 01/23/2025 Generated for Gema jerez/Ab/Speedy on: 07/03/2024 08:53 AM EST
--- OUTSIDE RECORDS SUMMARY | 2025-04-25 04:45 | XMS_ITS ---
Author Organization [facility] Address [address] [place] [id number] Care Team Providers Care High School Music Director Name Role Phone Pierce Perez Primary Care Provider Allergies No Known Allergies Results Component Value Reference Range Notes P-Comprehensive Metabolic Pa gia (CMP) Reviewed date:04/28/2025 04:52:45 PM Interpretation:Na 134, Glu 102, Creat 1.52, eGFR 47 Performing Lab: Notes/Report: Test performed by [facility], [address] , [address], [place] [address] Jodee Kunz MD, PhD, [facility], [employer] CLIA: [id number] Sodium 134 135-145 mmol/L Potassium 4.5 3.5-5.3 mmol/L Chloride 97 97-108 mmol/L CO2 27 20-32 mmol/L Glucose 102 65-99 mg/dL BUN 21 8-23 mg/dL Creatinine 1.52 0.70-1.30 mg/dL Calcium 9.4 8.6-10.4 mg/dL eGFR by Creatinine 47 >59 mL/min/1.73m2 Protein 6.9 6.0-8.3 g/dL Albumin 4.4 3.5-5.3 g/dL Alkaline Phosphatase 87 44-138 IU/L ALT (SGPT) 18 <5-55 IU/L AST (SGOT) 22 <5-46 IU/L Bilirubin, Total 0.6 <0.2-1.2 mg/dL A/G Ratio 1.8 1.1-2.5 P-Lipid Panel Reviewed date:04/28/2025 04:52:45 PM Interpretation:Normal Performing Lab: Notes/Report: Test performed by [facility] [address] [place] [address] , [address], [place] [address] Jodee Kunz MD, PhD, [facility], [employer] CLIA: [id number] Lipid Panel Footnote See Below *Based on optimal reference values. Please refer to the DOS for additional information regarding diagnostic lipid reference ranges, patient management based on the recently updated lipid guidelines ([place] [employer]/[place] [employer] Association Task Force on Clinical Practice Guidelines (2018), and pediatric diagnostic lipid reference values (<18 years old). 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 MAX OF 3 DOSES IN 15 MINUTES, IF NO RELIEF CALL 911 OR GO TO ER; Duration: 30 Active metOLazone 2.5 mg 1 tablet orally hima y; Duration: 90 days Active Farxiga 5 mg TAKE 1 TABLET DAILY Active Sildenafil Citrate 20 MG 3 orally as dir ected; Duration: 30 days Active Losartan Potassium 50 mg 1 tablet Orally twice a day; Duration: 90 days Active Loratadine 10 MG 1 tablet Orally Once a day; Duration: 30 days 10/30/2024 Active Acetaminophen-Codeine 300-30 MG 1 tablet Orally four times a day as needed 06/24/2024 Active Fluticasone Propionate 50 MCG/ACT 1 spray in each nostril Nasally Once a day 12/15/2023 Active buPROPion HCl ER (XL) 150 MG 1 tablet in the morning orally once daily; Duration: 90 days Active Atorvastatin Calcium 40 mg 1 tablet Oral ly Once a day; Duration: 90 days Active Hydrocortisone 2.5 % 1 application Exter lola Once a day 01/11/2023 Active OSTEO-BIFLEX 1500 MG 1 P.O. ONCE A DAY Active Aspirin 81 MG 1 tab orally once daily Active Vitamin D3 25 MCG (1000 UT) 1 tab(s) ora lly once a day; Duration: 30 day(s) Active CoQ10 100 MG 1 cap(s) orally once a day 12/21/2010 Active LORazepam 0.5 MG 1 tab(s) orally 3 ti mes a day as needed; Duration: 30 days 04/23/2025 Active Vital Signs Weight 190.4 lbs 04/25/2025 Blood pressure systolic 120 mm Hg 04/25/20 25 Blood pressure diastolic 70 mm Hg 025 Heart Rate 65 /min 04/25/2025 Height 73 in 04/25/2025 BMI 25.12 kg/m2 04/25/2025 Encounters Encounter Location Date Provider Diagnosis [facility] [address] [place] [id number] 04/25/2025 Pierce Perez Essential hypertensi on I10 ; Arteriosclerotic cardiovascular disease I25.10 ; Stented coronary artery Z95.5 ; Hyponatremia E87.1 ; Hammertoe of right foot M20.41 ; Hyperlipidemia, unspecified E78.5 and 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 Assessments Encounter Date Diagnosis (ICD Code) Assessment Notes Treatment Notes Treatment Clinical Notes Section Notes 04/25/2025 Essential hypertension (ICD-10 - I10) 04/25/2025 Arteriosclerotic cardiovascular disease (ICD-10 - I25.10) 04/25/2025 Stented coronary artery (ICD-10 - Z95.5) 04/25/2025 Hyponatremia (ICD-10 - E87.1) 04/25/2025 Hammertoe of right foot (ICD-10 - M20.41) 04/25/2025 Hyperlipidemia, unspecified (ICD-10 - E78.5) 04/25/2025 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 :1945 A ge:79 Y S ex:Male Date:04/25/2025 Address:[facility] [place], [id number] Subjective: * Chief Complaints: * 1 . 4 Month Check Up. 2. Needs labs with PSA. * HPI: C ardiology: The pt is here for a check up on Hypertension. Pt states he is doing good and denies any new concerns. Pt is fasting. Denies : Chest Pain. D enies : Short of Breath. D enies : Dizziness. D enies : Palpitations. * ROS: C ONSTITUTIONAL: Positive for A vikyher physician seen since last visit? Yes, Dr. Lau Change in medication since last visit? No, Are you taking antibiotics? No, Are you taking steroids? No. D ERMATOLOGY: no R isacc. n o [...] application Externally Once a day , Taking Fluticasone Propionate 50 MCG/ACT Suspension 1 spray in each nostril Nasally Once a day , Taking Acetaminophen-Codeine 300-30 MG Tablet 1 tablet Orally four times a day as needed , Taking Loratadine 10 MG Tablet 1 tablet Orally Once a day , Taking Atorvastatin Calcium 40 mg Tablet 1 tablet Orally Once a day , Taking buPROPion HCl ER (XL) 150 MG Tablet Extended Release 24 Hour 1 tablet in the morning orally once daily , Taking Farxiga 5 mg Tablet TAKE 1 TABLET DAILY , Taking metOLazone 2.5 mg Tablet 1 tablet orally daily , Taking Losartan Potassium 50 mg Tablet 1 tablet Orally twice a day , Taking Sildenafil Citrate 20 MG Tablet 3 orally as directed , Taking Nitroglycerin 0.4 mg Tablet Sublingual DISSOLVE 1 TABLET UNDER THE TONGUE EVERY 5 MINUTES NEEDED. MAX OF 3 DOSES IN 15 MINUTES, IF NO RELIEF CALL 911 OR GO TO ER , Taking LORazepam 0.5 MG Tablet 1 tab(s) orally 3 times a day as needed , Medication List reviewed and reconciled with the patient * Allergies: N .K.D.A. Objective: * Vitals: W t: 190.4, Temp: 98.2, BP: 120/70, HR: 65, Nurse: DIANA, Ht: 73, BMI:25.12. * Examination: G eneral Examination: General Appearance: N AD. H EENT: u nremarkable.?Neck: s upple, no lymphadenopathy. C hest: n ormal shape and expansion. H eart:?RSR. L ungs: c lear to auscultation. N eurologic Exam: I ntact, gait normal. Peripheral pulses: n ormal . E xtremities: R ight foot with hammer toe 2nd digit and bilateral bunions.. Assessment: * Assessment: 1. E ssential hypertension - I10 (Primary) 2 . A rteriosclerotic cardiovascular disease - I25.10 3 . S tented coronary artery - Z95.5 4 .?Hyponatremia - E87.1 5 . H ammertoe of right foot - M20.41 6 . H yperlipidemia, unspecified - E78.5 7 . 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 Plan: * Treatment: Value Reference Range A /G Ratio 1.8 1.1-2.5 - * A lbumin 4.4 3.5-5.3 - g/dL * A lkaline Phosphatase 87 44-138 - IU/L * A LT (SGPT) 18 <5-55 - IU/L * A ST (SGOT) 22 <5-46 - IU/L * B ilirubin, Total 0.6 <0.2-1.2 - mg/dL * B UN 21 8-23 - mg/dL * C alcium 9.4 8.6-10.4 - mg/dL * C hloride 97 97-108 - mmol/L * C O2 27 20-32 - mmol/L * C reatinine 1.52 H 0.70-1.30 - mg/dL * G lucose 102 H 65-99 - mg/dL * P otassium 4.5 3.5-5.3 - mmol/L * S odium 134 L 135-145 - mmol/L * P rotein 6.9 6.0-8.3 - g/dL * e GFR by Creatinine 47 L >59 - mL/min/1.73m2 * Mary West 04/28/2025 04 :52:41 PM EST > See phone encounter 2.?Hyperlipidemia, unspecified?LAB: P-Lipid Panel (Collection Date & Time - 04/25/2025 10:10 AM)?Normal* Value Reference Range C holesterol / HDL Ratio 2.13 <4.99 - Ratio * C holesterol 136 <200 - mg/dL * H DL Cholesterol 64 >40 - mg/dL * L DL Cholesterol (Calculation) 63 <100 - mg/d L * L DL/HDL Ratio 0.99 <2.49 - Ratio * N on-HDL Cholesterol 72 <130 - mg/dL * T riglycerides 44 <150 - mg/dL * L ipid Panel Footnote See Below - * Mary West 04/28/2025 04 :52:41 PM EST > See phone encounter 3.?Neoplasm of lip? Referral To: ?Reason:neoplasmof lip, squamous cell in situ * Procedure Codes: G 2211 Complex e/[place], [address] VENIPUNCT, ROUTINE*, G8950 PREHTN/HTN BP DOC INDCD F/U DOC, G8752 MOST RECENT SYSTOLIC BP < 140MM HG, G8754 MOST RECENT DIASTOLIC BP < 90MM HG, 3074F SYST BP LT 130 MM HG, 3078F DIAST BP < 80 MM HG * Follow Up: 6 Months * Images: Billing Information: * Visit Code: 86930 Office Visit, Est Pt., Level 4. * Procedure Codes: G2211 Complex e/[place]. [address] VENIPUNCT, ROUTINE*. G8950 PREHTN/HTN BP DOC INDCD F/U DOC. G8752 MOST RECENT SYSTOLIC BP < 140MM HG. G8754 MOST RECENT DIASTOLIC BP < 90MM HG. 3074F SYST BP LT 130 MM HG. 3078F DIAST BP < 80 MM HG. * Electronic signature of Pierce Perez MD on 05/02/2025 at 08:52 AM EST Sign off status: Pending * Provider: Pierce Perez M.D. Date: 06/26/2024 Generated for Gema jerez/Ab/eTransmitting on: 07/03/2024 08:52 AM EST History and Physical Notes * HPI (History of Present Illness) Category Sub-Category Detail Notes Category Not es Cardiology Short of Breath Chest Pain Palpitations Dizziness Examination Category Sub-Category Detail Notes Category Not es General Examination HEENT: unremarkable Heart: RSR Lungs: clear to auscultatio n Extremities: Right foot with samantha er toe 2nd digit and bilateral bunions. General Appearance: NAD Skin: Neurologic Exam: Intact, gait normal Neck: supple, no lymphaden opathy Peripheral pulses: normal Chest: normal shape and exp ansion Consultation Request Notes Referral Date Referring Provider Referred Provider Not es 04/25/2025 Pierce Perez , neoplasm o f lip, squamous cell in situ
--- OUTSIDE RECORDS SUMMARY | 2025-05-02 08:52 | XMS_ITS | Clinical Summary ---
Author Organization Healthcare Address [address] [place] [address] Care Team Providers Care Art Objects Repairer Name Role Phone Rodrigo Perez MD Primary Care Provider [phone] Allergies No known active allergies Medications nitroglycerin [...] or (1 - 1-dose 75+ series) 07/23/2022 [id number] Vaccine (6 - 2024- season) 2025 02/09/2022, 12/09/2021, 03/10/2021, Additional history exists [facility]-Influenza Vaccine (#1) 01/13/202502/04, 02/22/2021, 02/11/2020, Additional history exists [facility]-Obesity Intervention Completed 024, 06/15/2023, 11/25/2022 HPV Vaccines (No Doses Required) Completed [facility]-HIB Vaccines Aged Out No longer e [...] patient's age to complete this topic Insurance [facility] MEDICARE Care Teams Art Objects Repairer Relationship Specialty Start Date End Date Rodrigo Perez MD [address] [place] PCP - General 03/22/22
--- OUTSIDE RECORDS SUMMARY | 2025-05-02 08:53 | XMS_ITS | Patient Health Record ---
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 Name Role Phone Pierce Perez Primary Care Provider Mushtaq Gómez Unavailable [phone] Lucy Erickson Unavailable [phone] Allergies No Known Allergies Results Component Value Reference Range Notes P-Basic Metabolic Panel (BMP ) Reviewed date:12/25/2024 01:18:41 PM Interpretation:Na 131, cl 93, gfr 56 Performing Lab: Notes/Report: Test performed by [facility] [address] [place] [address] , [address], [place] [address] Saúl Pulliam MD, [employer] Hyd[employer] Installer CLIA: [id number] Sodium 131 135-145 mmol/L Potassium 4.8 3.5-5.3 mmol/L Chloride 93 97-108 mmol/L CO2 27 20-32 mmol/L Glucose 80 65-99 mg/dL BUN 21 8-23 mg/dL Creatinine 1.30 0.70-1.30 mg/dL Calcium 9.2 8.6-10.4 mg/dL eGFR by Creatinine 56 >59 mL/min/1.73m2 P-Comprehensive Metabolic Pa gia (CMP) Reviewed date:04/28/2025 04:52:45 PM Interpretation:Na 134, Glu 102, Creat 1.52, eGFR 47 Performing Lab: Notes/Report: Test performed by [facility] [address] [place], [place] [email or web address] Tamia [place], [address], [place] [address] Jodee Kunz MD, PhD, AP, Water Hyd[employer] Installer CLIA: [id number] Sodium 134 135-145 mmol/L Potassium 4.5 3.5-5.3 [...] Interpretation:Normal Performing Lab: Notes/Report: Test performed by [facility] [address] [place] [address] , [address], [place] [address] Jodee Kunz MD, PhD, [facility], Water Hydrant Installer CLIA: [id number] Lipid Panel Footnote See Below *Based on optimal reference values. Please refer to the DOS for additional information regarding diagnostic lipid reference ranges, patient management based on the recently updated lipid guidelines ([employer] [employer]/[place] [employer] Task Force on Clinical Practice [...] Results: 63 Units: mg/dL % Change: -8% X ray : Shoulder, right Reviewed date:05/29/2024 08:40:48 AM Interpretation:degenerative changes Performing Lab: Notes/Report: degenerative changes P-Microalbumin/Creatinine, R andom Urine Sample Reviewed date:06/19/2024 01:13:13 PM Interpretation:Normal Performing Lab: Notes/Report: Saúl Pulliam MD, Water Hydrant Installer CLIA: [id number] [address] [place] [address] , [address], [place] [address] Test performed by [employer], [facility] Albumin/Creatinine Ratio, Urine 25 0-30 ug/mg Microalbumin, Urine, Random 1.9 Creatinine, Urine 77.0 MRI : Shoulder, right, witho ut contrast Reviewed date:07/08/2024 03:40:09 PM Interpretation:Abnormal, see 07/08/2024 f/u appt Performing Lab: Notes/Report: Abnormal, see 07/08/2024 f/u appt P-Comprehensive Metabolic Pa gia (CMP) Reviewed date:08/21/2024 04:42:33 PM Interpretation:Sod 132, CO2 21, Glu 111, BUN 28, Creat 1.54, eGFR 46 Performing Lab: Notes/Report: CLIA: [id number] Saúl Pulliam MD, Water Hydrant Installer [address] [place] [address] , [place] [address] Test performed by [facility] Sodium 132 135-145 mmol/L Potassium 4.7 3.5-5.3 [...] 0.4 <0.2-1.2 mg/dL A/G Ratio 2.1 1.1-2.5 P-Comprehensive Metabolic Pa gia ([facility]) Reviewed date:05/29/2024 08:40:48 AM Interpretation:bun 26, Cr 1.54, gfr 46 Performing Lab: Notes/Report: CLIA: [id number] Saúl Pulliam MD, Water Hydrant Installer [address] [place] [address] [place] [address] Test performed by [facility] Sodium 137 135-145 mmol/L Potassium 5.0 3.5-5.3 [...] 0.5 <0.2-1.2 mg/dL A/G Ratio 1.9 1.1-2.5 Medications Medication SIG (Take, Route, Frequency, Duration) Notes Start Date End Date Status Nitroglycerin 0.4 mg DISSOLVE 1 TABLET U NDER THE TONGUE EVERY 5 MINUTES NEEDED. MAX OF 3 DOSES IN 15 MINUTES, IF NO RELIEF CALL 911 OR GO TO ER; Duration: 30 Active Loratadine 10 MG 1 tablet Orally Once a day; Duration: 30 days 10/30/2024 Active Acetaminophen-Codeine 300-30 MG 1 tablet Orally four times a day as needed 06/24/2024 Active Fluticasone Propionate 50 MCG/ACT 1 spray in each nostril Nasally Once a day 12/15/2023 Active Hydrocortisone 2.5 % 1 application Exter lola Once a day 01/11/2023 Active LORazepam 0.5 MG 1 tab(s) orally 3 ti mes a day as needed; Duration: 30 days 04/23/2025 Active OSTEO-BIFLEX 1500 MG 1 P.O. ONCE A DAY Active metOLazone 2.5 mg 1 tablet orally hima y; Duration: 90 days Active Farxiga 5 mg TAKE 1 TABLET DAILY Active buPROPion HCl ER (XL) 150 MG 1 tablet in the morning orally once daily; Duration: 90 days Active Atorvastatin Calcium 40 mg 1 tablet Oral ly Once a day; Duration: 90 days Active Aspirin 81 MG 1 tab orally once daily Active Vitamin D3 25 MCG (1000 UT) 1 tab(s) ora lly once a day; Duration: 30 day(s) Active Sildenafil Citrate 20 MG 3 orally as dir ected; Duration: 30 days Active CoQ10 100 MG 1 cap(s) orally once a day 12/21/2010 Active Losartan Potassium 50 mg 1 tablet Orally twice a day; Duration: 90 days Active Immunizations Vaccine Route Administration Date Status Comme nts COVID 19 Moderna IM Intramuscular 07/03/2020 Administered COVID 19 Moderna Unknown 03/10/2021 Administered Fluzone High Dose (65yr and older) IM Intramuscular 02/11/2013 Administered Fluzone High Dose (65yr and older) IM Intramuscular 01/27/2014 Administered Fluzone High Dose (65yr and older) IM Intramuscular 02/18/2015 Administered Fluzone High Dose (65yr and older) IM Intramuscular 01/19/2016 Administered Fluzone High Dose (65yr and older) IM Intramuscular 02/01/2017 Administered Fluzone High Dose (65yr and older) IM Intramuscular 03/13/2018 Administered Fluzone High Dose (65yr and older) IM Intramuscular 02/21/2019 Administered Fluzone High Dose (65yr and older) IM Intramuscular 02/11/2020 Administered Fluzone High Dose (65yr and older) IM Intramuscular 02/22/2021 Administered Fluzone High Dose (65yr and older) IM Intramuscular 02/04/2022 Administered Fluzone High Dose (65yr and older) IM Intramuscular 01/31/2023 Administered Fluzone High Dose (65yr and older) IM Intramuscular 02/24/2024 Administered Fluzone High Dose (65yr and older) IM Intramuscular 01/23/2025 Administered H1N1 flu vaccine IM Intramuscular 05/01/2009 Administered PNEUMOVAX 23 VACCINE IM Intramuscular 02/27/2007 Administe red PNEUMOVAX 23 VACCINE IM Intramuscular 01/19/2012 Administe red Prevnar (PCV13) IM Intramuscular 10/23/2014 Administered Prevnar (PCV20) IM Intramuscular 01/31/2023 Administered Shingrix Unknown 02/06/2018 Administered At [facility] 02/06/18 Shingrix IM Intramuscular 02/06/2018 Administered Tetanus Tdap-Adacel (over 7yrs) IM Intramuscular 05/31/2006 Administered tuberculin (ppd) ID Intradermal 03/02/2006 Administered xAdministration of injection SC Subcutaneous 11/02/2009 Administered xFlu shot-36 months and older IM Intramuscular 03/30/2006 Administered xFlu shot-36 months and older IM Intramuscular 02/27/2007 Administered xFlu shot-36 months and older IM Intramuscular 03/12/2008 Administered xFlu shot-36 months and older IM Intramuscular 02/02/2009 Administered xFlu shot-36 months and older IM Intramuscular 03/15/2011 Administered xFluzone (6mos and older)-trivalent IM Intramuscular 02/23/2010 Administered xFluzone Intradermal (18-64yrs)-trivalent IM Intramuscular 01/19/2012 Administered Problems Problem Type SNOMED Code ICD Code Onset Dates Problem Status W/U Status Risk Notes Problem Essential hypertension (67487526) Essential (primary) hypertension (I10) Active confirmed Problem Hyponatremia (41593374) Hyponatremia (E87.1) Active confirmed Problem Essential hypertension (08569071) Essential hypertension (I10) Active confirmed Problem Mixed anxiety and depressive disorder (638828516) Depression with anxiety (F41.8) Active confirmed Problem Memory loss (56439899) Memory loss (R41.3) Active confirmed Problem Dyspepsia (499566476) Dyspepsia (R10.13) Active confirmed Problem Hyperlipidemia (75433128) Hyperlipidemia, unspecified (E78.5) Active confirmed Problem Bursitis of right shoulder (449959779161004) Bursitis of right shoulder (M75.51) Active confirmed Problem Injury of superior glenoid labrum of shoulder joint (264398689) Superior glenoid labrum lesion of right shoulder, subsequent encounter (S43.431D) Active confirmed Problem Male erectile disorder (084039395) Male erectile disorder (N52.9) Active confirmed Problem Seborrheic keratosis (33857801) Seborrheic keratosis (L82.1) Active confirmed Problem Arteriosclerotic vascular disease (49320493) Arteriosclerotic cardiovascular disease (I25.10) Active confirmed Problem Diverticular disease of colon (018882353) Diverticulosis of large intestine without hemorrhage (K57.30) Active confirmed Problem Squamous cell carcinoma of skin (680972423) Squamous cell carcinoma of skin (C44.92) Active confirmed Problem Degeneration of lumbosacral intervertebral disc (45238888) Disc disease, degenerative, lumbar or lumbosacral (M51.37) Active confirmed Problem Lesion of lip (815017079) Lesion of lip (K13.0) Active confirmed Problem Stented coronary artery (795175421) Stented coronary artery (Z95.5) Active confirmed Problem Seasonal allergic rhinitis (234721202) Seasonal allergic rhinitis, unspecified allergic rhinitis trigger (J30.2) Active confirmed Problem Benign prostatic hypertrophy without outflow obstruction (767113661) Benign prostatic hyperplasia without lower urinary tract symptoms (N40.0) Active confirmed Problem Age-related cataract (27418209) Age-related cataract of both eyes, unspecified age-related cataract type (H25.9) Active confirmed Problem Bicipital tenosynovitis (30114878) Biceps tendinitis of right upper extremity (M75.21) Active confirmed Problem Acquired hammer toe of right foot (9530366672687453) Hammertoe of right foot (M20.41) Active confirmed Problem 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 (197534660) 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 (C44.02) Active confirmed Problem Traumatic incomplete tear of right rotator cuff, subsequent encounter (S46.011D) Active confirmed Vital Signs Heart Rate 65 /min 04/25/2025 Blood pressure diastolic 70 mm Hg 04/25/2025 Height 73 in 04/25/2025 Blood pressure systolic 120 mm Hg 04/25/2025 Weight 190.4 lbs 04/25/2025 BMI 25.12 kg/m2 04/25/2025 Encounters Encounter Location Date Provider Diagnosis [facility] [address] [facility] [address] [place] [id number] 05/27/2024 J Chris Chris Bursitis of right de ltoid M75.51 and Hyponatremia E87.1 [facility] [address] [facility] [address] [place], [place] [id number] 06/10/2024 J Chris Chris Bursitis of right shoulder M75.51 and Essential (primary) hypertension I10 [facility] [address] [facility] [address] [place], [place] [id number] 06/24/2024 J Chris Chris Biceps tendinitis of right upper extremity M75.21 [facility] [address] [facility] [address] [place] [id number] 07/08/2024 J Chris Chris Superior glenoid lab rum lesion of right shoulder, subsequent encounter S43.431D and Traumatic incomplete tear of right rotator cuff, subsequent encounter S46.011D [facility] [address] [place], [place] [id number] 08/19/2024 J Chris Chris Superior glenoid lab rum lesion of right shoulder, subsequent encounter S43.431D ; Essential (primary) hypertension I10 and BMI 25.0-25.9,adult Z68.25 [facility] [address] [facility] [address] [place], [place] [id number] 10/30/2024 Lucy Erickson Non-recurrent acute serous otitis media of left ear H65.02 and BMI 25.0-25.9,adult Z68.25 [facility] [address] [facility] [address] [place], [place] [id number] 11/27/2024 Lucy Crowdy Spasm of right trape zius muscle M62.830 ; Open wound of toe, initial encounter S91.109A and BMI 25.0-25.9,adult Z68.25 [facility] [address] [facility] [address] [place], [place] [id number] 12/23/2024 Pierce Perez Essential hypertensi on I10 ; Renal insufficiency N28.9 ; Arteriosclerotic cardiovascular disease I25.10 ; Stented coronary artery Z95.5 ; Superior glenoid labrum lesion of right shoulder, subsequent encounter S43.431D ; Hammertoe of right foot M20.41 ; Bunion of right foot M21.611 ; Bunion of left foot M21.612 ; Actinic keratosis L57.0 and BMI 25.0-25.9,adult Z68.25 [facility] [address] [place], [place] [id number] 01/23/2025 Pierce Perez Encounter for immunization Z23 [facility] [address] [facility] [address] [id number] 04/25/2025 Pierce Perez Essential hypertensi on I10 ; Arteriosclerotic cardiovascular disease I25.10 ; Stented coronary artery Z95.5 ; Hyponatremia E87.1 ; Hammertoe of right foot M20.41 ; Hyperlipidemia, unspecified E78.5 and 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 [facility] [address] [facility] [address] [place], [place] [id number] 04/28/2025 Pierce Perez [facility] [address] [facility] [address] [place], [place] [id number] 05/21/2024 Pierce Perez Depression with anxi ety F41.8 [facility] [address] [facility] [address] [place], [place] [id number] 05/29/2024 Pierce Perez [facility] [address] [place], [place] [id number] 08/21/2024 Pierce Perez [facility] [address] [facility] [address] [place], [place] [id number] 11/21/2024 Pierce Perez Depression with anxi ety F41.8 [facility] [address] [place], [place] [id number] 12/25/2024 Pierce Perez [facility] [address] [place], [place] [id number] 03/17/2025 Pierce Perez [facility] [address] [facility] [address] [place], [place] [id number] 04/03/2025 Pierce Perez Male erectile disord er N52.9 [facility] [address] [facility] [address] [place], [place] [id number] 04/23/2025 Mushtaq Marinette Depression with anxi ety F41.8 Assessments Encounter Date Diagnosis (ICD Code) Assessment Notes Treatment Notes Treatment Clinical Notes Section Notes 05/21/2024 Depression with anxiety (ICD-10 - F41.8) 05/27/2024 Hyponatremia (ICD-10 - E87.1) 05/27/2024 Bursitis of right deltoid (ICD-10 - M75.51) 06/10/2024 Essential (primary) hypertension (ICD-10 - I10) 06/10/2024 Bursitis of right shoulder (ICD-10 - M75.51) ice, diclofenac gel 06/24/2024 Biceps tendinitis of right upper extremity (ICD-10 - M75.21) 07/08/2024 Superior glenoid labrum lesion of right shoulder, subsequent encounter (ICD-10 - S43.431D) 07/08/2024 Traumatic incomplete tear of right rotator cuff, subsequent encounter (ICD-10 - S46.011D) 08/19/2024 Essential (primary) hypertension (ICD-10 - I10) Cont present regimen 08/19/2024 Superior glenoid labrum lesion of right shoulder, subsequent encounter (ICD-10 - S43.431D) 10/30/2024 BMI 25.0-25.9,adult (ICD-10 - Z68.25) 10/30/2024 Non-recurrent acute serous otitis media of left ear (ICD-10 - H65.02) Has flonase at home he will use daily. 11/21/2024 Depression with anxiety (ICD-10 - F41.8) 11/27/2024 Spasm of right trapezius muscle (ICD-10 - M62.830) 11/27/2024 Open wound of toe, initial encounter (ICD-10 - S91.109A) 12/23/2024 Essential hypertension (ICD-10 - I10) 12/23/2024 Renal insufficiency (ICD-10 - N28.9) 01/23/2025 Encounter for immunization (ICD-10 - Z23) 04/03/2025 Male erectile disorder (ICD-10 - N52.9) 04/23/2025 Depression with anxiety (ICD-10 - F41.8) 04/25/2025 Essential hypertension (ICD-10 - I10) 04/25/2025 Arteriosclerotic cardiovascular disease (ICD-10 - I25.10) 04/25/2025 Stented coronary artery (ICD-10 - Z95.5) 12/23/2024 Arteriosclerotic cardiovascular disease (ICD-10 - I25.10) 11/27/2024 BMI 25.0-25.9,adult (ICD-10 - Z68.25) 08/19/2024 BMI 25.0-25.9,adult (ICD-10 - Z68.25) 12/23/2024 Stented coronary artery (ICD-10 - Z95.5) 04/25/2025 Hyponatremia (ICD-10 - E87.1) 04/25/2025 Hammertoe of right foot (ICD-10 - M20.41) 12/23/2024 Superior glenoid labrum lesion of right shoulder, subsequent encounter (ICD-10 - S43.431D) 12/23/2024 Hammertoe of right foot (ICD-10 - M20.41) 04/25/2025 Hyperlipidemia, unspecified (ICD-10 - E78.5) 04/25/2025 Neoplasm of lip (ICD-10 - D49.0) 12/23/2024 Bunion of right foot (ICD-10 - M21.611) 12/23/2024 Bunion of left foot (ICD-10 - M21.612) 12/23/2024 Actinic keratosis (ICD-10 - L57.0) 12/23/2024 BMI 25.0-25.9,adult (ICD-10 - Z68.25) Plan Of Treatment Next Appt Details Provider Name:Pierce Vualonzo er, 10/24/2025 09:30:00 AM, [address], [place], [place], [id number], Insurance Providers Payer Name Payer Address Payer Phone Subscriber Number Group Number Insured Name Patient Relationship to Insured Coverage Start Date Coverage End Date [employer] [address] [address] [place], [place] [id number] Alex Marquez Self - patient is the insured Medications Administered Medication Instructions Date of Administration Dosage Notes celestone 05/09/2006 1 mL Dexamethasone 09/23/2008 1 mL Dexamethasone 10/16/2015 1 mL Medical (General) History Medical History History ICD Code elevated LDL cholesterol neg [facility]XT 11/2010 retinal vein occlusion with bleed , Dr. Simons Cardiolyte GXT 03/10/11 01/20/2012 CXR stable Stent mid LAD and LCx, Dr. Boswell 2009 Coronary Artery Disease Chronic kidney disease Lumbar Disc Disease Surgical History Surgery Date(Month/Year) hernia repair x 2 bone chip removed causing sciatica-Dr. Tone alvarez 1999 hernia ( left) 01/2008 2 stents 02/2010 back surgery 05/03/2016 Heart Cath 08/2018 Dr. Armando Santiago 08/06/2015 Colonoscopy, Dr. Roberts 2004 Dr. Lau, plantar fasciitis 2019 OS irridectomy 07/2021 Hospitalization History Reason Date(Month/Year)
--- NOTE | 2025-05-02 09:15 | XR_ITS ---
FINAL REPORT CLINICAL HISTORY: Access bone quality COMPARISON: None FINDINGS: Using the left forearm, the bone mineral density of the mid is 0.689 g/cm2, corresponding to T-score of -0.3. Using the left hip, the bone mineral density of the femoral neck is 1.132 g/cm2, corresponding to a T-score of 0.7. Using the right hip, the bone mineral density of the femoral neck is 1.128 g/cm2, corresponding to a T-score of 0.6. NOTE: T-score: Standard deviation compared with peak bone mass of young adult mean. *Following the recommendations of the International Society of Bone densitometry, classification of hip BMD is based on the lower of two T-scores; total hip or femoral neck. IMPRESSION: Normal bone mineral density of the left forearm and the bilateral hips. Reviewed, Interpreted and Dictated by Lakeshia Hardy MD Transcribed by Phuong Galaviz Authenticated and [facility]
--- NOTE | 2025-05-02 09:30 | CT_ITS ---
FINAL REPORT TECHNIQUE: Thin section axial CT images with coronal and sagittal reformats were performed. This study was performed with techniques to keep radiation doses as low as reasonably achievable (ALARA). Individualized dose reduction techniques using automated exposure control or adjustment of mA and/or kV according to the patient''s size were employed. CLINICAL HISTORY: subchondral cyst formation, arthritis,, surgical planning c/o of toe pain mostly COMPARISON: None FINDINGS: There are no fractures. There are severe osteoarthritic changes of the first MTP joint. Degenerative changes are also noted to the first metatarsal sesamoids. There are hammertoe deformities of the 2nd through 5th MTP joints. Mild hallux valgus deformity is noted. Mid foot and hindfoot are unremarkable. There are no masses or fluid collections. There are no soft tissue abnormalities. IMPRESSION: Advanced osteoarthritic changes with subchondral cysts and spurs of the first MTP joint. Reviewed, Interpreted and Dictated by Lakeshia Hardy MD Transcribed by Lalita Abdullahi Authenticated and [facility]
== END 2025-05-02 23:59 | disposition home or self-care (01) ==
LOC: RAD 08:50
PROVIDERS: PCP Family Medicine; Visit Provider Podiatrist
DX: M19.071 Primary osteoarthritis, right ankle and foot (principal); M19.072 Primary osteoarthritis, left ankle and foot; M25.871 Other specified joint disorders, right ankle and foot; M77.51 Other enthesopathy of right foot and ankle; M20.21 Hallux rigidus, right foot; M20.11 Hallux valgus (acquired), right foot; M20.41 Other hammer toe(s) (acquired), right foot; E55.9 Vitamin D deficiency, unspecified; M85.89 Other specified disorders of bone density and structure, multiple sites; G57.81 Other specified mononeuropathies of right lower limb
CPT/HCPCS: 73700; 77080